=== PATIENT | male | born 1960 | race American Indian/Alaskan Native ===

== ENCOUNTER 2016-09-15 20:26 | Inpatient (IN) | payer MEDICAID ==
[2016-09-15 21:19] LABS: Hemoglobin 8.5 gm/dl (11.8-15.2); Mean Corpuscular HGB Conc 33 % (32-34); Mean Corpuscular Volume 79 fl (84-94); Platelet Count 428 K/mm3 (140-440); Red Blood Count 3.31 M/mm3 (3.65-5.03)
[2016-09-15 21:29] LABS: Mean Corpuscular Hemoglobin 26 pg (28-32); Red Cell Distribution Width 20.4 % (13.2-15.2); White Blood Count 25.6 K/mm3 (4.5-11.0)
[2016-09-15 21:37] LABS: Alanine Aminotransferase 19 units/L (7-56); Albumin 2.7 g/dL (3.9-5); Albumin/Globulin Ratio 0.5 %; Alkaline Phosphatase 450 units/L (35-129); Anion Gap 22 mmol/L; Bilirubin,Total 2.9 mg/dL (0.1-1.2); Blood Urea Nitrogen 9 mg/dL (9-20); Calcium 8.8 mg/dL (8.4-10.2); Carbon Dioxide 24 mmol/L (22-30); Chloride 91.2 mmol/L (98-107); Glucose 83 mg/dL (75-100); Lipase 39 units/L (13-60); Potassium 3.4 mmol/L (3.6-5.0); Sodium 134 mmol/L (137-145); Total Protein 8.7 g/dL (6.3-8.2)
[2016-09-15 22:35] LABS: Basophils % (Manual) 0 % (0.0-1.8); Blastocytes % (Manual) 0 %; Eosinophils % (Manual) 0 % (0.0-4.3); Total Cells Counted Percent 6.5
[2016-09-15 22:36] LABS: Anisocytosis 1+; Diff Status Complete; Hypochromasia 1+; Platelet Estimate Consistent w Auto; Target Cells 1+
[2016-09-16 08:21] LABS: Bilirubin,Urine SM (Negative); Blood,Urine NEG (Negative); Ketones,Urine TR mg/dL (Negative); Leukocyte Esterase,Urine NEG (Negative); Mucus,Urine FEW /HPF; Nitrite,Urine NEG (Negative)
[2016-09-16] MEDS ORDERED: NACL 0.9% 1000 ML 1,000 ML ONE (08:59)
[2016-09-16] MEDS ORDERED: MORPHINE IV ONE (09:15)
[2016-09-16] MEDS ORDERED: ZOSYN/NS 4.5GM/100ML 4.5 GM/100 ML VIAL IV ONE (09:15)
[2016-09-16] MEDS ORDERED: ZOFRAN IV ONE (09:15)
[2016-09-16 10:01] LABS: INR 1.12 (0.87-1.13)
[2016-09-16 10:02] LABS: Partial Thromboplastin Time 51.3 Sec. (24.2-36.6)
[2016-09-16] MEDS ORDERED: NACL ONE (10:18)
[2016-09-16] MEDS ORDERED: NACL 0.9% 1000 ML IV STA (11:23)
--- NOTE | 2016-09-16 11:29 | Cat Scan Report ---
CT ABDOMEN PELVIS WITH CONTRAST History: Abdominal pain Technique: Helical CT following IV contrast. Sagittal and coronal reformatted images. Findings: Compared to 07/20/16. There is now complete thrombosis of the main portal vein as well as most of the right and left portal venous systems. Thrombus also extended into the proximal half of the splenic vein and proximal superior mesenteric vein. Periportal edema is noted near the liver hilum. Mild heterogeneous enhancement throughout the liver parenchyma which is likely secondary to vascular abnormality. There is a new rounded area of decreased enhancement in the central portions of the liver measuring 2.4 cm. This appears to be new since the previous exam. The etiology of this is unclear. This could represent a biloma or possibly an early hepatic abscess. Please correlate with the patient's clinical presentation. There appear to be scattered reactive lymph nodes in the sonali hepatis and gastrohepatic ligament. The spleen is at the upper limits of normal size measuring 12.6 cm. No varicosities or ascites is appreciated. The biliary system, pancreas and adrenal glands are unremarkable. A 1 cm simple cyst is noted in the mid left kidney. Otherwise, the kidneys, collecting systems and bladder are unremarkable. Normal prostate gland. The bowel loops are within normal limits given no oral contrast was administered. Normal appendix. There appears to be mild thickening of the gastric mucosa which could represent a gastritis. Heart size is normal. The visualized lung bases are clear. No suspicious bony lesion or fracture. Moderate to severe degenerative disc disease is noted at L4-5 and L5-S1. Impression: Increased thrombosis of the portal venous system as outlined above since 07/20/16. New 2.4 cm hypodensity near the liver hilum of uncertain etiology. Is there clinical concern for liver abscess? Slightly thickened gastric mucosa, gastritis?
[2016-09-16] MEDS ORDERED: DILAUDID IV ONE (11:47)
--- NOTE | 2016-09-16 12:46 | Emergency Department Report ---
HPI - General Chief Complaint: Abdominal Pain Time Seen by Provider: 09/16/16 09:06 - HPI HPI: Chief complaint: Abdominal pain nausea and vomiting HPI: Patient is a 56-year-old male with a history of portal vein thrombosis who is discharged from the hospital 07/24/2016 on Lovenox and did not follow-up with GI as he was instructed. Patient drinks on a regular basis and was noted on previous CT scan to have possible liver lesion and possible cirrhosis. Patient had a negative MRCP while he was here. Patient states he ran out of medication after a month and never followed up or had it refilled. Patient states last Friday began having right upper quadrant constant sharp abdominal pain. Mode of arrival: private car Source: Patient old chart Began: One week ago Duration: One week Context: See above Quality: Sharp Severity: 10 out of 10 Improved with: Nothing Worsened with: Palpation Associated signs and symptoms: Nausea vomiting on , decreased appetite and decreased bowel movements. ED Past Medical Hx - Past Medical History Previous Medical History?: Yes Hx Arthritis: Yes Additional medical history: Irregular heartbeat - Surgical History Past Surgical History?: No - Social History Smoking Status: Never Smoker Substance Use Type: None - Medications Home Medications: Home Medications Medication Instructions Recorded Confirmed Last Taken Type Enoxaparin [Lovenox] 80 mg SUB-Q Q12HR #30 syringe 07/22/16 Unknown Rx Warfarin [Coumadin] 5 mg PO QDAY #8 tablet 07/22/16 Unknown Rx oxyCODONE /ACETAMINOPHEN [Percocet 1 tab PO Q6H PRN #30 tablet 07/22/16 Unknown Rx 5/325 mg] ED Review of Systems ROS: Stated complaint: STOMACH PAIN Other details as noted in HPI ROS Constitutional: ? fever ENT: No uri symptoms Cardiovascular: No chest pain Respiratory: No sob or cough GI: No diarrhea : No dysuria frequency or urgency, Skin: No rash Neuro: No focal weakness or numbness Psych: No depression Suleiman/lymph: No edema Physical Exam - Physical Exam Vital Signs: Vital Signs 09/15/16 09/16/16 09/16/16 20:36 08:06 09:00 Temperature 99.8 F H Pulse Rate 97 H Respiratory 20 Rate Blood Pressure 129/80 143/82 130/79 Blood Pressure 129/80 [Right] O2 Sat by Pulse 99 Oximetry 0209/16/16 09/16/16 09:40 10:10 11:56 Temperature Pulse Rate Respiratory 20 20 20 Rate Blood Pressure Blood Pressure [Right] O2 Sat by Pulse Oximetry Physical Exam: GENERAL: The patient is well-developed well-nourished . HEENT: Normocephalic. Atraumatic. Extraocular motions are intact. Patient has moist mucous membranes. NECK: Supple. No meningitic signs are noted. There is no adenopathy noted. CHEST/LUNGS: Clear to auscultation. There is no respiratory distress noted. HEART/CARDIOVASCULAR: Regular. There is no tachycardia. There is no gallop rub or murmur. ABDOMEN: Abdomen is soft, tender epigastric and right upper quadrant. Patient has diminished bowel sounds. There is no abdominal distention. SKIN: There is no rash. There is no edema. There is no diaphoresis. NEURO: The patient is awake, alert, and oriented. The patient is cooperative. The patient has no focal neurologic deficits. The patient has normal speech. MUSCULOSKELETAL: There is no tenderness or deformity. There is no limitation range of motion. There is no evidence of acute injury. ED Course Vital Signs 09/15/16 09/16/16 09/16/16 20:36 08:06 09:00 Temperature 99.8 F H Pulse Rate 97 H Respiratory 20 Rate Blood Pressure 129/80 143/82 130/79 Blood Pressure 129/80 [Right] O2 Sat by Pulse 99 Oximetry 09/16/16 09/16/16 09/16/16 09:40 10:10 11:56 Temperature Pulse Rate Respiratory 20 20 20 Rate Blood Pressure Blood Pressure [Right] O2 Sat by Pulse Oximetry - Reevaluation(s) Reevaluation #1: 09/16/16 Patient was cultured and empirically started on Zosyn for his white count of 25, 000. ED Medical Decision Making - Lab Data Result diagrams: 09/15/16 21:04 09/15/16 21:04 Laboratory Tests 09/15/16 09/16/16 21:04 08:02 Total Bilirubin 2.9 H Alkaline Phosphatase 450 H Total Protein 8.7 H Albumin 2.7 L Lipase 39 Urine Ictotest Positive Urine Urobilinogen 4.0 Ur Leukocyte Esterase Neg Urine WBC (Auto) 11.0 H Urine RBC (Auto) 4.0 U Epithel Cells (Auto) < 1.0 - Radiology Data Radiology results: report reviewed (CT scan showed continuing portal vein thrombosis with new gastric wall thickening and several hypodensities to the liver concerning for abscesses.) - Medical Decision Making Patient will be admitted to the hospitalist service. Critical care attestation.: If time is entered above; I have spent that time in minutes in the direct care of this critically ill patient, excluding procedure time. ED Disposition Clinical Impression: Portal vein thrombosis Leukocytosis Qualifiers: Leukocytosis type: unspecified Qualified Code(s): D72.829 - Elevated white blood cell count, unspecified Abdominal pain Qualifiers: Abdominal location: generalized Qualified Code(s): R10.84 - Generalized abdominal pain Disposition: OP ADMITTED IP TO THIS HOSP Is pt being admited?: Yes Does the pt Need Aspirin: No Condition: Fair Referrals: PRIMARY CARE, [Primary Care Provider] - 3-5 Days Time of Disposition: 14:21
--- NOTE | 2016-09-16 12:48 | History and Physical Report ---
History of Present Illness Date of examination: 09/16/16 Date of admission: 09/16/16 Chief complaint: Abdominal pain History of present illness: Patient is a 56-year-old male with a history of portal vein thrombosis who is discharged from the hospital 07/24/2016 on Lovenox and did not follow-up with GI as he was instructed presented with abdominal pain along with nausea. Patient drinks on a regular basis and was noted on previous CT scan to have possible liver lesion and possible cirrhosis. Patient had a negative MRCP while he was here. Patient states he ran out of medication after a month and never followed up or had it refilled. Patient states last Friday he began to have right upper quadrant constant sharp abdominal pain without specific aggrevating or relieving factor. he had repeat CT scan of abdomen in the ER today which showed increased area of portal vein thrombosis with a possible hepatic sedation and possible gastritis. Patient has been getting admitted for further evaluation and management. He states that his last alcohol ingestion was 5 days ago. Past History Past Medical History: denies: acute [place], CAD, cancer, diabetes, DVT, heart failure, hepatitis, HIV/AIDS Past Surgical History: No surgical history Social history: + smoking, +alcohol abuse Family history: cancer Review of System: Constitutional: no fever, no chills, no weight loss Ears, eyes, nose, mouth and throat: no nasal congestion, no nasal discharge, no sinus pressure, no vision change, no red eye. Neck: No neck pain or rigidity. Cardiovascular: No chest pain, no orthopnea, no palpitations, no leg swelling Respiratory: No shortness of breath, no cough, no congestion, no wheezing Gastrointestinal: + abdominal pain, + nausea, no vomiting Genitourinary : no dysuria, no hematuria Musculoskeletal: no joint swelling or muscle ache Integumentary: no rash, no pruritis Neurological: no parathesias, no numbness, no tingling Endocrine: no cold or heat intolerance, no polyuria or polydipsia Hematologic/Lymphatic: no easy bruising, no easy bleeding, no gland swelling Allergic/Immunologic: no urticaria, no angioedema. Medications and Allergies Allergies Allergy/AdvReac Type Severity Reaction Status Date / Time No Known Allergies Allergy Verified 07/20/16 06:07 Home Medications Medication Instructions Recorded Confirmed Last Taken Type No Known Home Medications [No 09/16/16 09/16/16 Unknown History Reported Home Medications] Exam - Physical Exam Narrative exam: GENERAL: This is well-developed well-nourished lying on bed appeared to be in no discomfort. HEENT: Normocephalic. Atraumatic. Extraocular motions are intact. No conjunctival congestion or icterus. Patient has moist mucous membranes. External auditory canal and nares patent bilaterally. NECK: Supple. Trachea midline. No JVD, thyromagaly or lymphadenopathy. CHEST/LUNGS: Clear to auscultated bilaterally. There is no respiratory distress noted, breathing nonlabored. No wheezes crackles or rhonchi. HEART/CARDIOVASCULAR: Regular in rate and rhythm. PMI at the apex. There is no gallop rub or murmur. ABDOMEN: Abdomen is soft, nontender. Patient has normal bowel sounds. There is no abdominal distention. No organomagaly or rigidity. SKIN: There is no rash, no erythrema. There is no diaphoresis. Warm and dry. NEUROLOGY: The patient is awake, alert, and oriented. The patient is cooperative. The patient has normal speech. No focal motor deficit. MUSCULOSKELETAL: No joint effusion or tenderness. Muscle strength equal bilaterally. No muscle wasting. EXTRIMITY: No edema, cyanosis or clubbing. PSYCH: No depression or anxiety noted. Cooperative. - Constitutional Vitals: Temp Pulse Resp BP Pulse Ox 99.8 F H 99 H 20 130/79 99 09/15/16 20:36 09/15/16 20:36 09/16/16 11:56 09/16/16 09:00 09/15/16 20:36 Results - Labs CBC & Chem 7: 09/15/16 21:04 09/15/16 21:04 Labs: Laboratory Last Values WBC 25.6 K/mm3 (4.5-11.0) H 09/15/16 21:04 RBC 3.31 M/mm3 (3.65-5.03) L 09/15/16 21:04 Hgb 8.5 gm/dl (11.8-15.2) L 09/15/16 21:04 Hct 26.0 % (35.5-45.6) L 09/15/16 21:04 MCV 79 fl (84-94) L 09/15/16 21:04 MCH 26 pg (28-32) L 09/15/16 21:04 MCHC 33 % (32-34) 09/15/16 21:04 RDW 20.4 % (13.2-15.2) H 09/15/16 21:04 Plt Count 428 K/mm3 (140-440) 09/15/16 21:04 Add Manual Diff Complete 09/15/16 21:04 Total Counted 200 09/15/16 21:04 Seg Neuts % (Manual) 80.0 % (40.0-70.0) H 09/15/16 21:04 Band Neutrophils % 1.5 % 09/15/16 21:04 Lymphocytes % (Manual) 12.0 % (13.4-35.0) L 09/15/16 21:04 Reactive Lymphs % (Man) 0 % 09/15/16 21:04 Monocytes % (Manual) 6.5 % (0.0-7.3) 09/15/16 21:04 Eosinophils % (Manual) 0 % (0.0-4.3) 09/15/16 21:04 Basophils % (Manual) 0 % (0.0-1.8) 09/15/16 21:04 Metamyelocytes % 0 % 09/15/16 21:04 Myelocytes % 0 % 09/15/16 21:04 Promyelocytes % 0 % 09/15/16 21:04 Blast Cells % 0 % 09/15/16 21:04 Nucleated RBC % Not Reportable 09/15/16 21:04 Seg Neutrophils # Man 20.5 K/mm3 (1.8-7.7) H 09/15/16 21:04 Band Neutrophils # 0.4 K/mm3 09/15/16 21:04 Lymphocytes # (Manual) 3.1 K/mm3 (1.2-5.4) 09/15/16 21:04 Abs React Lymphs (Man) 0.0 K/mm3 09/15/16 21:04 Monocytes # (Manual) 1.7 K/mm3 (0.0-0.8) H 09/15/16 21:04 Eosinophils # (Manual) 0.0 K/mm3 (0.0-0.4) 09/15/16 21:04 Basophils # (Manual) 0.0 K/mm3 (0.0-0.1) 09/15/16 21:04 Metamyelocytes # 0.0 K/mm3 09/15/16 21:04 Myelocytes # 0.0 K/mm3 09/15/16 21:04 Promyelocytes # 0.0 K/mm3 09/15/16 21:04 Blast Cells # 0.0 K/mm3 09/15/16 21:04 WBC Morphology Not Reportable 09/15/16 21:04 Hypersegmented Neuts Not Reportable 09/15/16 21:04 Hyposegmented Neuts Not Reportable 09/15/16 21:04 Hypogranular Neuts Not Reportable 09/15/16 21:04 Smudge Cells Not Reportable 09/15/16 21:04 Toxic Granulation Not Reportable 09/15/16 21:04 Toxic Vacuolation Not Reportable 09/15/16 21:04 Dohle Bodies Not Reportable 09/15/16 21:04 Pelger-Huet Anomaly Not Reportable 09/15/16 21:04 Ming Rods Not Reportable 09/15/16 21:04 Platelet Estimate Consistent w auto 09/15/16 21:04 Clumped Platelets Not Reportable 09/15/16 21:04 Plt Clumps, EDTA Not Reportable 09/15/16 21:04 Large Platelets Not Reportable 09/15/16 21:04 Giant Platelets Not Reportable 09/15/16 21:04 Platelet Satelliting Not Reportable 09/15/16 21:04 Plt Morphology Comment Not Reportable 09/15/16 21:04 RBC Morphology Not Reportable 09/15/16 21:04 Dimorphic RBCs Not Reportable 09/15/16 21:04 Polychromasia Not Reportable 09/15/16 21:04 Hypochromasia 1+ 09/15/16 21:04 Poikilocytosis Not Reportable 09/15/16 21:04 Anisocytosis 1+ 09/15/16 21:04 Microcytosis Not Reportable 09/15/16 21:04 Macrocytosis Not Reportable 09/15/16 21:04 Spherocytes Not Reportable 09/15/16 21:04 Pappenheimer Bodies Not Reportable 09/15/16 21:04 Sickle Cells Not Reportable 09/15/16 21:04 Target Cells 1+ 09/15/16 21:04 Tear Drop Cells Not Reportable 09/15/16 21:04 Ovalocytes Not Reportable 09/15/16 21:04 Helmet Cells Not Reportable 09/15/16 21:04 [place] Bodies Not Reportable 09/15/16 21:04 [place] Rings Not Reportable 09/15/16 21:04 Amanda Cells Not Reportable 09/15/16 21:04 Bite Cells Not Reportable 09/15/16 21:04 Crenated Cell Not Reportable 09/15/16 21:04 Elliptocytes Not Reportable 09/15/16 21:04 Acanthocytes (Spur) Not Reportable 09/15/16 21:04 Rouleaux Not Reportable 09/15/16 21:04 Hemoglobin C Crystals Not Reportable 09/15/16 21:04 Schistocytes Not Reportable 09/15/16 21:04 Malaria parasites Not Reportable 09/15/16 21:04 Deshawn Bodies Not Reportable 09/15/16 21:04 Hem Pathologist Commnt No 09/15/16 21:04 PT 14.3 Sec. (12.2-14.9) 09/16/16 09:24 INR 1.12 (0.87-1.13) 09/16/16 09:24 APTT 51.3 Sec. (24.2-36.6) H 09/16/16 09:24 Sodium 134 mmol/L (137-145) L 09/15/16 21:04 Potassium 3.4 mmol/L (3.6-5.0) L 09/15/16 21:04 Chloride 91.2 mmol/L (98-107) L 09/15/16 21:04 Carbon Dioxide 24 mmol/L (22-30) 09/15/16 21:04 Anion Gap 22 mmol/L 09/15/16 21:04 BUN 9 mg/dL (9-20) 09/15/16 21:04 Creatinine 0.6 mg/dL (0.8-1.5) L 09/15/16 21:04 Estimated GFR > 60 ml/min 09/15/16 21:04 BUN/Creatinine Ratio 15.00 % 09/15/16 21:04 Glucose 83 mg/dL (75-100) 09/15/16 21:04 Calcium 8.8 mg/dL (8.4-10.2) 09/15/16 21:04 Total Bilirubin 2.9 mg/dL (0.1-1.2) H 09/15/16 21:04 AST 21 units/L (5-40) 09/15/16 21:04 ALT 19 units/L (7-56) 09/15/16 21:04 Alkaline Phosphatase 450 units/L (35-129) H 09/15/16 21:04 Total Protein 8.7 g/dL (6.3-8.2) H 09/15/16 21:04 Albumin 2.7 g/dL (3.9-5) L 09/15/16 21:04 Albumin/Globulin Ratio 0.5 % 09/15/16 21:04 Lipase 39 units/L (13-60) 09/15/16 21:04 Urine Color Qi (Yellow) 09/16/16 08:02 Urine Turbidity Clear (Clear) 09/16/16 08:02 Urine pH 6.0 (5.0-7.0) 09/16/16 08:02 Ur Specific Ira 1.021 (1.003-1.030) 09/16/16 08:02 Urine Protein 100 mg/dl mg/dL (Negative) 09/16/16 08:02 Urine Glucose (UA) Neg mg/dL (Negative) 09/16/16 08:02 Urine Ketones Tr mg/dL (Negative) 09/16/16 08:02 Urine Blood Neg (Negative) 09/16/16 08:02 Urine Nitrite Neg (Negative) 09/16/16 08:02 Urine Bilirubin Sm (Negative) 09/16/16 08:02 Urine Ictotest Positive (Negative) 09/16/16 08:02 Urine Urobilinogen 4.0 mg/dL (<2.0) 09/16/16 08:02 Ur Leukocyte Esterase Neg (Negative) 09/16/16 08:02 Urine WBC (Auto) 11.0 /HPF (0.0-6.0) H 09/16/16 08:02 Urine RBC (Auto) 4.0 /HPF (0.0-6.0) 09/16/16 08:02 U Epithel Cells (Auto) < 1.0 /HPF (0-13.0) 09/16/16 08:02 Urine Mucus Few /HPF 09/16/16 08:02 - Imaging and Cardiology CT scan - abdomen: report reviewed CT scan - pelvis: report reviewed Assessment and Plan Assessment and plan: Portal vein thrombosis Medication noncompliance Alcohol abuse Abdominal pain likely due to portal vein thrombosis and gastritis Leukocytosis, rule out sepsis, likely chronically elevated Plan: Patient had extensive workup for possible malignancy during his last admission His CT chest, MRCP, CT abdomen and pelvis during his previous admission did not show any sign for malignancy GI recommended outpatient follow-up for EGD and colonoscopy which patient did not We'll place him on Lovenox therapeutic dose every 12 hours We'll consult GI to see if they will possibly do EGD and colonoscopy this time Counseled for medication compliance If the GI clears him, patient could be started on Coumadin Obtain blood culture, UA, place on empiric antibiotic for now for elevated white count Advance Directives: Yes VTE prophylaxis?: Chemical Plan of care discussed with patient/family: Yes
[2016-09-16] MEDS ORDERED: TYLENOL PO PRN (12:50)
[2016-09-16] MEDS ORDERED: DULCOLAX PR PRN (12:50)
[2016-09-16] MEDS ORDERED: APRESOLINE IV PRN (12:50)
--- NOTE | 2016-09-16 13:01 | Admit Criteria Form ---
Admission Criteria Documentation: ABDOMINAL PAIN Clinical Indications for Admission to Inpatient Care (Place 'X' for any and all applicable criteria): Admission is indicated for ANY ONE of the following(1)(2)(3)(4)(5): [X]I. Inpatient admission required rather than observation care (Also use Abdominal Pain: Observation Care, as appropriate) because of ANY ONE of the following: [ ]a) Severe pain requiring acute inpatient management [X]b) Identification of etiology/finding that requires inpatient care (eg, aortic dissection, free air) [ ]c) Absent bowel sounds with complete ileus(6) [ ]d) Suspected toxic megacolon [ ]e) Severe electrolyte abnormalities requiring inpatient care [ ]f) High fever or infection requiring inpatient admission as indicated by ANY ONE of following(7)(8): [ ] i) Appropriate outpatient or observational care antimicrobial treatment unavailable, not effective, or not feasible [ ] ii) Documented bacteremia [ ] iii) Temperature > 104.9 degrees F (oral) [ ] iv) T >103.1 F (oral) or < 96.8 F(rectal) that does not respond to all emergency treatment measures [ ]g) Signs of intestinal obstruction [B] [ ]h) Hemodynamic instability [ ]i) IV fluid to replace significant ongoing losses (greater than 3 L/m2 per day) (12)(13) [ ]j) Percutaneous or open drainage (eg, abscess, biliary tract ) procedures [ ]k) Parenteral nutrition regimen that must be implemented on inpatient basis [ ]l) Other condition,treatment or monitoring requiring inpatient admission. [ ]II. Peritoneal signs present [ ]III. Surgery needed that cannot be performed on an ambulatory basis. [ ]IV. Evaluation requires patient to not eat or drink for extended period ( eg, more than 24 hours). [ ]V. Contraindications and/or Inappropriate clinical situations for Observational Care in patients with abdominal pain, when ANY ONE of the following is required: [ ]a) Thorough evaluation is required to prevent catastrophic events due to delays in diagnosing (e.g.Mesenteric ischemia) 1,3 [ ]b) Patient with severe pathology or with chronic symptoms unlikely to improve in the ED stay (3) [ ]. General contraindications and/or Inappropriate clinical situations for Observational Care in patients with abdominal pain, when ANY ONE of the following is required: [ ]a) Prediction of prolongation of LOS based on ANY ONE of the following may be considered as a contraindication for observational care 2, 3, 4, 5, 6, 7, 8, 9, 10, 11 [ ]i) Age > 65 yrs. [ ]ii) Patient arriving by ambulance [ ]iii) Patient with high acuity [ ]iv) Patient requiring vital sign monitoring [ ]v) Patient on IV medication [ ]b) Systolic blood pressures 180mmHg 3,12 [ ]c) Patient with altered mental status including delirium and other alteration of consciousness, (3) [ ]d) Patient whose discharge disposition will be to a [facility] home or rehabilitation home should not be managed in Emergency Department Observation Unit. CMS rule requires 3 days hospital stay before such placement.3,13 [ ]e) Patient with failure to thrive due to broad array of etiologies 3,16,17 [ ]f) Inability to ambulate 3,14 Extended stay beyond goal length of stay may be needed for(2)(3): [ ]a) Persistent abdominal pain with suspected intra-abdominal process [ ]b) Diagnosed condition requiring continued stay (e.g., pancreatitis, complicated diverticulitis) [ ]c) Surgery (e.g., colectomy) The original [facility] content created by [employer] has been revised. The portions of the content which have been revised are identified through the use of italic text or in bold, and [facility] has neither reviewed nor approved the modified material.All other unmodified content is copyright [facility]. Please see references footnoted in the original [facility] edition 2016 Admission Criteria Met: Yes
[2016-09-16] MEDS: NORCO 5/325 PO PRN ×2 (13:24→22:29)
[2016-09-16] MEDS: PERCOCET 5/325 PO PRN (17:48)
[2016-09-16] MEDS: NACL 0.45% 1000 ML 1,000 ML IV SCH (17:48)
[2016-09-16] MEDS: LOVENOX SUB-Q SCH (22:29)
[2016-09-16] MEDS: COLACE PO SCH (22:29)
[2016-09-16] MEDS: PEPCID PO SCH (22:30)
[2016-09-17] MEDS: NACL 0.45% 1000 ML 1,000 ML IV SCH ×3 (01:29→20:37)
[2016-09-17] MEDS: PERCOCET 5/325 PO PRN ×2 (05:13→20:37)
[2016-09-17] MEDS: PEPCID PO SCH ×2 (09:34→22:10)
[2016-09-17] MEDS: LOVENOX SUB-Q SCH ×2 (09:35→22:10)
[2016-09-17] MEDS: NORCO 5/325 PO PRN ×2 (09:35→17:09)
[2016-09-17] MEDS: COLACE PO SCH ×2 (09:37→22:10)
[2016-09-17] MEDS ORDERED: LEVAQUIN PO SCH (10:00)
[2016-09-17] MEDS ORDERED: ATIVAN IV PRN (14:10)
--- NOTE | 2016-09-17 14:20 | Progress Note ---
Assessment and Plan Assessment and plan: Portal vein thrombosis Medication noncompliance Alcohol abuse Abdominal pain likely due to portal vein thrombosis and gastritis Leukocytosis, rule out sepsis, likely chronically elevated Hypokalemia, replace Plan: Patient had extensive workup for possible malignancy during his last admission His CT chest, MRCP, CT abdomen and pelvis during his previous admission did not show any sign for malignancy GI recommended outpatient follow-up for EGD and colonoscopy which patient did not We'll continue him on Lovenox therapeutic dose every 12 hours Follow-up GI recommendation to see if they will possibly do EGD and colonoscopy this time Place on when necessary Ativan for possible alcohol withdrawal If the GI clears him, patient could be started on Coumadin Follow-up blood culture, continue on empiric antibiotic for now for elevated white count CBC and BMP tomorrow Replace electrolytes as needed History Interval history: Patient seen and examined. Medical records and medication list reviewed. No acute event overnight noted by the RN. Patient denies any chest pain or difficulty breathing. Patient is tolerating diet. Abdominal pain much improved and nausea under control Discussed plan of care at bedside with patient. Hospitalist Physical - Physical exam Narrative exam: GENERAL: This is well-developed well-nourished -[place]oth[place] male lying on bed appeared to be in no discomfort. HEENT: Normocephalic. Atraumatic. Extraocular motions are intact. No conjunctival congestion or icterus. Patient has moist mucous membranes. External auditory canal and nares patent bilaterally. NECK: Supple. Trachea midline. No JVD, thyromagaly or lymphadenopathy. CHEST/LUNGS: Clear to auscultated bilaterally. There is no respiratory distress noted, breathing nonlabored. No wheezes crackles or rhonchi. HEART/CARDIOVASCULAR: Regular in rate and rhythm. PMI at the apex. There is no gallop rub or murmur. ABDOMEN: Abdomen is soft, nontender. Patient has normal bowel sounds. There is no abdominal distention. No organomagaly or rigidity. SKIN: There is no rash, no erythrema. There is no diaphoresis. Warm and dry. NEUROLOGY: The patient is awake, alert, and oriented. The patient is cooperative. The patient has normal speech. No focal motor deficit. MUSCULOSKELETAL: No joint effusion or tenderness. Muscle strength equal bilaterally. No muscle wasting. EXTRIMITY: No edema, cyanosis or clubbing. PSYCH: No depression or anxiety noted. Cooperative. - Constitutional Vitals: Temp Pulse Resp BP Pulse Ox 98 F 82 16 129/79 98 09/17/16 07:45 09/17/16 07:45 09/17/16 07:45 09/17/16 07:45 09/17/16 07:45 Results - Labs CBC & Chem 7: 09/15/16 21:04 09/15/16 21:04 Labs: Laboratory Last Values WBC 25.6 K/mm3 (4.5-11.0) H 09/15/16 21:04 RBC 3.31 M/mm3 (3.65-5.03) L 09/15/16 21:04 Hgb 8.5 gm/dl (11.8-15.2) L 09/15/16 21:04 Hct 26.0 % (35.5-45.6) L 09/15/16 21:04 MCV 79 fl (84-94) L 09/15/16 21:04 MCH 26 pg (28-32) L 09/15/16 21:04 MCHC 33 % (32-34) 09/15/16 21:04 RDW 20.4 % (13.2-15.2) H 09/15/16 21:04 Plt Count 428 K/mm3 (140-440) 09/15/16 21:04 Add Manual Diff Complete 09/15/16 21:04 Total Counted 200 09/15/16 21:04 Seg Neuts % (Manual) 80.0 % (40.0-70.0) H 09/15/16 21:04 Band Neutrophils % 1.5 % 09/15/16 21:04 Lymphocytes % (Manual) 12.0 % (13.4-35.0) L 09/15/16 21:04 Reactive Lymphs % (Man) 0 % 09/15/16 21:04 Monocytes % (Manual) 6.5 % (0.0-7.3) 09/15/16 21:04 Eosinophils % (Manual) 0 % (0.0-4.3) 09/15/16 21:04 Basophils % (Manual) 0 % (0.0-1.8) 09/15/16 21:04 Metamyelocytes % 0 % 09/15/16 21:04 Myelocytes % 0 % 09/15/16 21:04 Promyelocytes % 0 % 09/15/16 21:04 Blast Cells % 0 % 09/15/16 21:04 Nucleated RBC % Not Reportable 09/15/16 21:04 Seg Neutrophils # Man 20.5 K/mm3 (1.8-7.7) H 09/15/16 21:04 Band Neutrophils # 0.4 K/mm3 09/15/16 21:04 Lymphocytes # (Manual) 3.1 K/mm3 (1.2-5.4) 09/15/16 21:04 Abs React Lymphs (Man) 0.0 K/mm3 09/15/16 21:04 Monocytes # (Manual) 1.7 K/mm3 (0.0-0.8) H 09/15/16 21:04 Eosinophils # (Manual) 0.0 K/mm3 (0.0-0.4) 09/15/16 21:04 Basophils # (Manual) 0.0 K/mm3 (0.0-0.1) 09/15/16 21:04 Metamyelocytes # 0.0 K/mm3 09/15/16 21:04 Myelocytes # 0.0 K/mm3 09/15/16 21:04 Promyelocytes # 0.0 K/mm3 09/15/16 21:04 Blast Cells # 0.0 K/mm3 09/15/16 21:04 WBC Morphology Not Reportable 09/15/16 21:04 Hypersegmented Neuts Not Reportable 09/15/16 21:04 Hyposegmented Neuts Not Reportable 09/15/16 21:04 Hypogranular Neuts Not Reportable 09/15/16 21:04 Smudge Cells Not Reportable 09/15/16 21:04 Toxic Granulation Not Reportable 09/15/16 21:04 Toxic Vacuolation Not Reportable 09/15/16 21:04 Dohle Bodies Not Reportable 09/15/16 21:04 Pelger-Huet Anomaly Not Reportable 09/15/16 21:04 Ming Rods Not Reportable 09/15/16 21:04 Platelet Estimate Consistent w auto 09/15/16 21:04 Clumped Platelets Not Reportable 09/15/16 21:04 Plt Clumps, EDTA Not Reportable 09/15/16 21:04 Large Platelets Not Reportable 09/15/16 21:04 Giant Platelets Not Reportable 09/15/16 21:04 Platelet Satelliting Not Reportable 09/15/16 21:04 Plt Morphology Comment Not Reportable 09/15/16 21:04 RBC Morphology Not Reportable 09/15/16 21:04 Dimorphic RBCs Not Reportable 09/15/16 21:04 Polychromasia Not Reportable 09/15/16 21:04 Hypochromasia 1+ 09/15/16 21:04 Poikilocytosis Not Reportable 09/15/16 21:04 Anisocytosis 1+ 09/15/16 21:04 Microcytosis Not Reportable 09/15/16 21:04 Macrocytosis Not Reportable 09/15/16 21:04 Spherocytes Not Reportable 09/15/16 21:04 Pappenheimer Bodies Not Reportable 09/15/16 21:04 Sickle Cells Not Reportable 09/15/16 21:04 Target Cells 1+ 09/15/16 21:04 Tear Drop Cells Not Reportable 09/15/16 21:04 Ovalocytes Not Reportable 09/15/16 21:04 Helmet Cells Not Reportable 09/15/16 21:04 [place] Bodies Not Reportable 09/15/16 21:04 [place] Rings Not Reportable 09/15/16 21:04 [place] Cells Not Reportable 09/15/16 21:04 Bite Cells Not Reportable 09/15/16 21:04 Crenated Cell Not Reportable 09/15/16 21:04 Elliptocytes Not Reportable 09/15/16 21:04 Acanthocytes (Spur) Not Reportable 09/15/16 21:04 Rouleaux Not Reportable 09/15/16 21:04 Hemoglobin C Crystals Not Reportable 09/15/16 21:04 Schistocytes Not Reportable 09/15/16 21:04 Malaria parasites Not Reportable 09/15/16 21:04 Deshawn Bodies Not Reportable 09/15/16 21:04 Hem Pathologist Commnt No 09/15/16 21:04 PT 14.3 Sec. (12.2-14.9) 09/16/16 09:24 INR 1.12 (0.87-1.13) 09/16/16 09:24 APTT 51.3 Sec. (24.2-36.6) H 09/16/16 09:24 Sodium 134 mmol/L (137-145) L 09/15/16 21:04 Potassium 3.4 mmol/L (3.6-5.0) L 09/15/16 21:04 Chloride 91.2 mmol/L (98-107) L 09/15/16 21:04 Carbon Dioxide 24 mmol/L (22-30) 09/15/16 21:04 Anion Gap 22 mmol/L 09/15/16 21:04 BUN 9 mg/dL (9-20) 09/15/16 21:04 Creatinine 0.6 mg/dL (0.8-1.5) L 09/15/16 21:04 Estimated GFR > 60 ml/min 09/15/16 21:04 BUN/Creatinine Ratio 15.00 % 09/15/16 21:04 Glucose 83 mg/dL (75-100) 09/15/16 21:04 Calcium 8.8 mg/dL (8.4-10.2) 09/15/16 21:04 Total Bilirubin 2.9 mg/dL (0.1-1.2) H 09/15/16 21:04 AST 21 units/L (5-40) 09/15/16 21:04 ALT 19 units/L (7-56) 09/15/16 21:04 Alkaline Phosphatase 450 units/L (35-129) H 09/15/16 21:04 Total Protein 8.7 g/dL (6.3-8.2) H 09/15/16 21:04 Albumin 2.7 g/dL (3.9-5) L 09/15/16 21:04 Albumin/Globulin Ratio 0.5 % 09/15/16 21:04 Lipase 39 units/L (13-60) 09/15/16 21:04 Urine Color Qi (Yellow) 09/16/16 08:02 Urine Turbidity Clear (Clear) 09/16/16 08:02 Urine pH 6.0 (5.0-7.0) 09/16/16 08:02 Ur Specific [place] 1.021 (1.003-1.030) 09/16/16 08:02 Urine Protein 100 mg/dl mg/dL (Negative) 09/16/16 08:02 Urine Glucose (UA) Neg mg/dL (Negative) 09/16/16 08:02 Urine Ketones Tr mg/dL (Negative) 09/16/16 08:02 Urine Blood Neg (Negative) 09/16/16 08:02 Urine Nitrite Neg (Negative) 09/16/16 08:02 Urine Bilirubin Sm (Negative) 09/16/16 08:02 Urine Ictotest Positive (Negative) 09/16/16 08:02 Urine Urobilinogen 4.0 mg/dL (<2.0) 09/16/16 08:02 Ur Leukocyte Esterase Neg (Negative) 09/16/16 08:02 Urine WBC (Auto) 11.0 /HPF (0.0-6.0) H 09/16/16 08:02 Urine RBC (Auto) 4.0 /HPF (0.0-6.0) 09/16/16 08:02 U Epithel Cells (Auto) < 1.0 /HPF (0-13.0) 09/16/16 08:02 Urine Mucus Few /HPF 09/16/16 08:02
--- NOTE | 2016-09-17 14:35 | Gastroenterology Consultation ---
History of Present Illness - Reason for Consult Consult date: 09/17/16 Portal vein thrombosis Requesting physician: EDEN RUEDA - History of Present Illness MR Jones is a 56 y/o male admitted with progressive RUQ pain. He was seen in this hospital in 06/2016 with hx of partial portal vein thrombosis. He was discharged on Lovenox and was to follow up in our office or colonoscopy. The patient reports he ran out of his medications and his pain became worse, therefore he presented to the ED. MRI scan in 07/24/2016 suggestive of portal vein thrombosis, however no mass identified. He reports increased RUQ pain with chills and decreased appetite. Repeat CT scan in the ER showed increased area of portal vein thrombosis with a possible early hepatic abscess. He states that his last alcohol ingestion was 5 days ago. Past History Past Medical History: other (portal vein thrombosis, ETOH use) Past Surgical History: No surgical history Social history: smoking, alcohol abuse Family history: cancer Medications and Allergies Allergies Allergy/AdvReac Type Severity Reaction Status Date / Time No Known Allergies Allergy Verified 07/20/16 06:07 Home Medications Medication Instructions Recorded Confirmed Last Taken Type No Known Home Medications [No 09/16/16 09/16/16 Unknown History Reported Home Medications] Active Meds: Active Medications Acetaminophen (Tylenol) 650 mg PO Q4H PRN PRN Reason: Pain MILD(1-3)/Fever >100.5/[place] Acetaminophen/Hydrocodone Bitart ([place] 5/325) 2 each PO Q6H PRN PRN Reason: Pain, Moderate (4-6) Last Admin: 09/17/16 09:35 Dose: 2 each Bisacodyl (Dulcolax) [address] QDAY PRN PRN Reason: Constipation unrelieved by MOM Docusate Sodium (Colace) 100 mg PO BID [facility] Last Admin: 09/17/16 09:37 Dose: 100 mg Enoxaparin Sodium (Lovenox) 70 mg SUB-Q Q12HR [facility] Last Admin: 09/17/16 09:35 Dose: 70 mg Famotidine (Pepcid) 10 mg PO BID [facility] Last Admin: 09/17/16 09:34 Dose: 10 mg Hydralazine HCl (Apresoline) 5 mg IV Q30MIN PRN PRN Reason: Hypertension Sodium Chloride (Nacl 0.45% 1000 Ml) 1,000 mls @ 125 mls/hr IV DIRECT [facility] Last Admin: 09/17/16 09:36 Dose: 125 mls/hr Levofloxacin (Levaquin) 500 mg PO Q24HR [facility] Last Admin: 09/17/16 09:35 Dose: 500 mg Lorazepam (Ativan) 2 mg IV Q4H PRN PRN Reason: Agitation Oxycodone/Acetaminophen (Percocet 5/325) 1 tab PO Q6H PRN PRN Reason: Pain, Moderate (4-6) Last Admin: 09/17/16 05:13 Dose: 1 tab Review of Systems - Review of Systems All systems: negative Constitutional: poor appetite Gastrointestinal: nausea, vomiting Exam - Constitutional Vital Signs: Temp Pulse Resp BP Pulse Ox 98 F 82 16 129/79 98 09/17/16 07:45 09/17/16 07:45 09/17/16 07:45 09/17/16 07:45 09/17/16 07:45 General appearance: no acute distress - EENT Eyes: EOM intact ENT: hearing intact - Neck Neck: supple - Respiratory Respiratory: bilateral: CTA - Cardiovascular Rhythm: regular Heart Sounds: Present: S1 & S2 Extremities: No edema - Gastrointestinal General gastrointestinal: Present: soft, tender, normal bowel sounds (TTP RIght side) - Integumentary Integumentary: Present: warm, dry - Neurologic Neurological: alert and oriented x3 - Psychiatric Psychiatric: appropriate mood/affect, cooperative - Labs CBC & Chem 7: 09/15/16 21:04 09/15/16 21:04 Assessment and Plan 1. Portal Vein Thrombosis -Extending to splenic vein and SMV -Continue Lovenox for now. Will need to review CT to asses if there is an early abscess. May have to consider drainage. Of note, patient with elevated WBC of 25K( thrombus vs infection). Currently on Levaquin. Will need to broaden the coverage with Zosyn. T max 99.8. -Will need to rule out abscess prior to EGD/Colonoscopy. -Further recommendations to follow.
[2016-09-17 16:11] LABS: Hemoglobin 8.7 gm/dl (11.8-15.2); Mean Corpuscular HGB Conc 32 % (32-34); Mean Corpuscular Volume 78 fl (84-94); Platelet Count 469 K/mm3 (140-440); Red Blood Count 3.45 M/mm3 (3.65-5.03)
[2016-09-17 16:12] LABS: Mean Corpuscular Hemoglobin 25 pg (28-32); White Blood Count 26.1 K/mm3 (4.5-11.0)
[2016-09-17 16:36] LABS: Total Iron Binding Capacity 201.6 mcg/dL (250-450)
[2016-09-17] MEDS: ZOSYN/NS 4.5GM/100ML 4.5 GM/100 ML VIAL IV SCH ×2 (17:09→23:43)
[2016-09-18] MEDS: NORCO 5/325 PO PRN (04:03)
[2016-09-18] MEDS: NACL 0.45% 1000 ML 1,000 ML IV SCH (04:50)
[2016-09-18 06:54] LABS: Hemoglobin 7.5 gm/dl (11.8-15.2); Mean Corpuscular HGB Conc 33 % (32-34); Mean Corpuscular Volume 78 fl (84-94); Platelet Count 350 K/mm3 (140-440); Red Blood Count 2.96 M/mm3 (3.65-5.03); White Blood Count 17.8 K/mm3 (4.5-11.0)
[2016-09-18 06:59] LABS: Mean Corpuscular Hemoglobin 25 pg (28-32); Red Cell Distribution Width 20.1 % (13.2-15.2)
[2016-09-18 07:05] LABS: Anion Gap 15 mmol/L; Blood Urea Nitrogen 5 mg/dL (9-20); Calcium 8.1 mg/dL (8.4-10.2); Carbon Dioxide 24 mmol/L (22-30); Glucose 82 mg/dL (75-100); Potassium 3.4 mmol/L (3.6-5.0); Sodium 130 mmol/L (137-145)
[2016-09-18] MEDS: ZOSYN/NS 4.5GM/100ML 4.5 GM/100 ML VIAL IV SCH ×3 (08:29→23:25)
[2016-09-18 08:43] LABS: Basophils % (Manual) 0 % (0.0-1.8); Blastocytes % (Manual) 0 %; Eosinophils % (Manual) 0 % (0.0-4.3)
[2016-09-18 08:44] LABS: Anisocytosis 1+; Diff Status Complete; Hypochromasia 1+; Poikilocytosis 1+; Target Cells 1+
[2016-09-18] MEDS: LOVENOX SUB-Q SCH ×2 (09:23→21:59)
[2016-09-18] MEDS: PERCOCET 5/325 PO PRN (09:23)
[2016-09-18] MEDS: COLACE PO SCH ×2 (09:23→21:58)
[2016-09-18] MEDS: PEPCID PO SCH ×2 (09:23→21:58)
[2016-09-18] MEDS: THORAZINE PO PRN ×2 (09:56→20:15)
[2016-09-18] MEDS: MORPHINE IV PRN ×3 (13:42→22:17)
--- NOTE | 2016-09-18 20:42 | Progress Note ---
Assessment and Plan Assessment and plan: Portal vein thrombosis Acute hepatic abscess Microcytic anemia, possible GI loss Medication noncompliance h/o Alcohol abuse Abdominal pain likely due to portal vein thrombosis and hepatic abscess Leukocytosis, likley due to hepatic abscess Hypokalemia, replaced Plan: Patient had extensive workup for possible malignancy during his last admission His CT chest, MRCP, CT abdomen and pelvis during his previous admission did not show any sign for malignancy Plan for EGD and colonoscopy tomorrow per GI continue on Lovenox therapeutic dose every 12 hours, hold am dose Place on when necessary Ativan for possible alcohol withdrawal continue on zosyn for now hepatic abscess CBC and BMP tomorrow Replace electrolytes as needed History Interval history: Patient seen and examined. Medical records and medication list reviewed. No acute event overnight noted by the RN. Patient is tolerating diet. Abdominal pain much improved and nausea under control Plan for EGD/colonoscopy tomorrow Discussed plan of care at bedside with patient. Hospitalist Physical - Physical exam Narrative exam: GENERAL: This is well-developed well-nourished -[place]inese male lying on bed appeared to be in no discomfort. HEENT: Normocephalic. Atraumatic. Extraocular motions are intact. No conjunctival congestion or icterus. Patient has moist mucous membranes. External auditory canal and nares patent bilaterally. NECK: Supple. Trachea midline. No JVD, thyromagaly or lymphadenopathy. CHEST/LUNGS: Clear to auscultated bilaterally. There is no respiratory distress noted, breathing nonlabored. No wheezes crackles or rhonchi. HEART/CARDIOVASCULAR: Regular in rate and rhythm. PMI at the apex. There is no gallop rub or murmur. ABDOMEN: Abdomen is soft, nontender. Patient has normal bowel sounds. There is no abdominal distention. No organomagaly or rigidity. SKIN: There is no rash, no erythrema. There is no diaphoresis. Warm and dry. NEUROLOGY: The patient is awake, alert, and oriented. The patient is cooperative. The patient has normal speech. No focal motor deficit. MUSCULOSKELETAL: No joint effusion or tenderness. Muscle strength equal bilaterally. No muscle wasting. EXTRIMITY: No edema, cyanosis or clubbing. PSYCH: No depression or anxiety noted. Cooperative. - Constitutional Vitals: Temp Pulse Resp BP Pulse Ox 97.8 F 63 15 103/64 100 09/18/16 15:25 09/18/16 15:25 09/18/16 15:25 09/18/16 15:25 09/18/16 15:25 Results - Labs CBC & Chem 7: 09/18/16 06:11 09/18/16 06:11 Labs: Laboratory Last Values WBC 17.8 K/mm3 (4.5-11.0) H 09/18/16 06:11 RBC 2.96 M/mm3 (3.65-5.03) L 09/18/16 06:11 Hgb 7.5 gm/dl (11.8-15.2) L 09/18/16 06:11 Hct 23.0 % (35.5-45.6) L 09/18/16 06:11 MCV 78 fl (84-94) L 09/18/16 06:11 MCH 25 pg (28-32) L 09/18/16 06:11 MCHC 33 % (32-34) 09/18/16 06:11 RDW 20.1 % (13.2-15.2) H 09/18/16 06:11 Plt Count 350 K/mm3 (140-440) 09/18/16 06:11 Add Manual Diff Complete 09/18/16 06:11 Total Counted 100 09/18/16 06:11 Seg Neuts % (Manual) 78.0 % (40.0-70.0) H 09/18/16 06:11 Band Neutrophils % 12.0 % 09/18/16 06:11 Lymphocytes % (Manual) 5.0 % (13.4-35.0) L 09/18/16 06:11 Reactive Lymphs % (Man) 0 % 09/18/16 06:11 Monocytes % (Manual) 5.0 % (0.0-7.3) 09/18/16 06:11 Eosinophils % (Manual) 0 % (0.0-4.3) 09/18/16 06:11 Basophils % (Manual) 0 % (0.0-1.8) 09/18/16 06:11 Metamyelocytes % 0 % 09/18/16 06:11 Myelocytes % 0 % 09/18/16 06:11 Promyelocytes % 0 % 09/18/16 06:11 Blast Cells % 0 % 09/18/16 06:11 Nucleated RBC % Not Reportable 09/18/16 06:11 Seg Neutrophils # Man 13.9 K/mm3 (1.8-7.7) H 09/18/16 06:11 Band Neutrophils # 2.1 K/mm3 09/18/16 06:11 Lymphocytes # (Manual) 0.9 K/mm3 (1.2-5.4) L 09/18/16 06:11 Abs React Lymphs (Man) 0.0 K/mm3 09/18/16 06:11 Monocytes # (Manual) 0.9 K/mm3 (0.0-0.8) H 09/18/16 06:11 Eosinophils # (Manual) 0.0 K/mm3 (0.0-0.4) 09/18/16 06:11 Basophils # (Manual) 0.0 K/mm3 (0.0-0.1) 09/18/16 06:11 Metamyelocytes # 0.0 K/mm3 09/18/16 06:11 Myelocytes # 0.0 K/mm3 09/18/16 06:11 Promyelocytes # 0.0 K/mm3 09/18/16 06:11 Blast Cells # 0.0 K/mm3 09/18/16 06:11 WBC Morphology Not Reportable 09/18/16 06:11 Hypersegmented Neuts Not Reportable 09/18/16 06:11 Hyposegmented Neuts Not Reportable 09/18/16 06:11 Hypogranular Neuts Not Reportable 09/18/16 06:11 Smudge Cells Not Reportable 09/18/16 06:11 Toxic Granulation Not Reportable 09/18/16 06:11 Toxic Vacuolation Not Reportable 09/18/16 06:11 Dohle Bodies Not Reportable 09/18/16 06:11 Pelger-Huet Anomaly Not Reportable 09/18/16 06:11 Ming Rods Not Reportable 09/18/16 06:11 Platelet Estimate Appears normal 09/18/16 06:11 Clumped Platelets Not Reportable 09/18/16 06:11 Plt Clumps, EDTA Not Reportable 09/18/16 06:11 Large Platelets Not Reportable 09/18/16 06:11 Giant Platelets Not Reportable 09/18/16 06:11 Platelet Satelliting Not Reportable 09/18/16 06:11 Plt Morphology Comment Not Reportable 09/18/16 06:11 RBC Morphology Not Reportable 09/18/16 06:11 Dimorphic RBCs Not Reportable 09/18/16 06:11 Polychromasia Not Reportable 09/18/16 06:11 Hypochromasia 1+ 09/18/16 06:11 Poikilocytosis 1+ 09/18/16 06:11 Anisocytosis 1+ 09/18/16 06:11 Microcytosis Not Reportable 09/18/16 06:11 Macrocytosis Not Reportable 09/18/16 06:11 Spherocytes Not Reportable 09/18/16 06:11 Pappenheimer Bodies Not Reportable 09/18/16 06:11 Sickle Cells Not Reportable 09/18/16 06:11 Target Cells 1+ 09/18/16 06:11 Tear Drop Cells Not Reportable 09/18/16 06:11 Ovalocytes Not Reportable 09/18/16 06:11 Helmet Cells Not Reportable 09/18/16 06:11 [place] Bodies Not Reportable 09/18/16 06:11 [place] Rings Not Reportable 09/18/16 06:11 [place] Cells Not Reportable 09/18/16 06:11 Bite Cells Not Reportable 09/18/16 06:11 Crenated Cell Not Reportable 09/18/16 06:11 Elliptocytes Not Reportable 09/18/16 06:11 Acanthocytes (Spur) Not Reportable 09/18/16 06:11 Rouleaux Not Reportable 09/18/16 06:11 Hemoglobin C Crystals Not Reportable 09/18/16 06:11 Schistocytes Not Reportable 09/18/16 06:11 Malaria parasites Not Reportable 09/18/16 06:11 Deshawn Bodies Not Reportable 09/18/16 06:11 Hem Pathologist Commnt No 09/18/16 06:11 PT 14.3 Sec. (12.2-14.9) 09/16/16 09:24 INR 1.12 (0.87-1.13) 09/16/16 09:24 APTT 51.3 Sec. (24.2-36.6) H 09/16/16 09:24 Sodium 130 mmol/L (137-145) L 09/18/16 06:11 Potassium 3.4 mmol/L (3.6-5.0) L 09/18/16 06:11 Chloride 94.0 mmol/L (98-107) L 09/18/16 06:11 Carbon Dioxide 24 mmol/L (22-30) 09/18/16 06:11 Anion Gap 15 mmol/L 09/18/16 06:11 BUN 5 mg/dL (9-20) L 09/18/16 06:11 Creatinine 0.5 mg/dL (0.8-1.5) L 09/18/16 06:11 Estimated GFR > 60 ml/min 09/18/16 06:11 BUN/Creatinine Ratio 10.00 % 09/18/16 06:11 Glucose 82 mg/dL (75-100) 09/18/16 06:11 Calcium 8.1 mg/dL (8.4-10.2) L 09/18/16 06:11 Iron 34 ug/dL (49-181) L 09/17/16 15:34 TIBC 201.60 mcg/dL (250-450) L 09/17/16 15:34 Transferrin 144 mg/dl (180-329) L 09/17/16 15:34 Ferritin 658.3 ng/mL (13.0-400.0) H 09/17/16 15:34 Total Bilirubin 2.9 mg/dL (0.1-1.2) H 09/15/16 21:04 AST 21 units/L (5-40) 09/15/16 21:04 ALT 19 units/L (7-56) 09/15/16 21:04 Alkaline Phosphatase 450 units/L (35-129) H 09/15/16 21:04 Total Protein 8.7 g/dL (6.3-8.2) H 09/15/16 21:04 Albumin 2.7 g/dL (3.9-5) L 09/15/16 21:04 Albumin/Globulin Ratio 0.5 % 09/15/16 21:04 Lipase 39 units/L (13-60) 09/15/16 21:04 Urine Color Qi (Yellow) 09/16/16 08:02 Urine Turbidity Clear (Clear) 09/16/16 08:02 Urine pH 6.0 (5.0-7.0) 09/16/16 08:02 Ur Specific [place] 1.021 (1.003-1.030) 09/16/16 08:02 Urine Protein 100 mg/dl mg/dL (Negative) 09/16/16 08:02 Urine Glucose (UA) Neg mg/dL (Negative) 09/16/16 08:02 Urine Ketones Tr mg/dL (Negative) 09/16/16 08:02 Urine Blood Neg (Negative) 09/16/16 08:02 Urine Nitrite Neg (Negative) 09/16/16 08:02 Urine Bilirubin Sm (Negative) 09/16/16 08:02 Urine Ictotest Positive (Negative) 09/16/16 08:02 Urine Urobilinogen 4.0 mg/dL (<2.0) 09/16/16 08:02 Ur Leukocyte Esterase Neg (Negative) 09/16/16 08:02 Urine WBC (Auto) 11.0 /HPF (0.0-6.0) H 09/16/16 08:02 Urine RBC (Auto) 4.0 /HPF (0.0-6.0) 09/16/16 08:02 U Epithel Cells (Auto) < 1.0 /HPF (0-13.0) 09/16/16 08:02 Urine Mucus Few /HPF 09/16/16 08:02
[2016-09-19] MEDS: MORPHINE IV PRN ×3 (07:00→20:52)
[2016-09-19] MEDS: ZOSYN/NS 4.5GM/100ML 4.5 GM/100 ML VIAL IV SCH ×3 (07:06→21:44)
[2016-09-19] MEDS ORDERED: WATER FOR IRRIG STERILE IR ONE (11:49)
[2016-09-19] MEDS ORDERED: NACL 0.9% 1000 ML 1,000 ML IV SCH (12:00)
[2016-09-19] MEDS: COLACE PO SCH ×2 (12:24→21:44)
[2016-09-19] MEDS: PEPCID PO SCH ×2 (12:25→21:44)
--- NOTE | 2016-09-19 14:31 | Event Note ---
Date: 09/19/16 Patient request to have EGD/Colonoscopy together. Will prep this PM and plan for EGD/Colonoscopy tomorrow Sara Sanchez, [id number]
[2016-09-19] MEDS ORDERED: GOLYTELY PO ONE (14:33)
--- NOTE | 2016-09-19 14:45 | Progress Note ---
Assessment and Plan Assessment and plan: Portal vein thrombosis Acute hepatic abscess Microcytic anemia, possible GI loss Medication noncompliance h/o Alcohol abuse Abdominal pain likely due to portal vein thrombosis and hepatic abscess Leukocytosis, likley due to hepatic abscess Hypokalemia, replaced Plan: Patient had extensive workup for possible malignancy during his last admission His CT chest, MRCP, CT abdomen and pelvis during his previous admission did not show any sign for malignancy Plan for EGD and colonoscopy tomorrow per GI continue on Lovenox therapeutic dose every 12 hours, Place on when necessary Ativan for possible alcohol withdrawal continue on zosyn for now hepatic abscess CBC and BMP tomorrow Replace electrolytes as needed History Interval history: Patient seen and examined. Medical records and medication list reviewed. No acute event overnight noted by the RN. Patient was scheduled for EGD today but didnot have the prep for colonoscopy he will have both procedure tomorrow Discussed plan of care at bedside with patient. Hospitalist Physical - Physical exam Narrative exam: GENERAL: This is well-developed well-nourished -[place] male lying on bed appeared to be in no discomfort. HEENT: Normocephalic. Patient has moist mucous membranes. External auditory canal and nares patent bilaterally. NECK: Supple. Trachea midline. CHEST/LUNGS: Clear to auscultated bilaterally. There is no respiratory distress noted, breathing nonlabored. HEART/CARDIOVASCULAR: Regular in rate and rhythm. ABDOMEN: Abdomen is soft, nontender. Patient has normal bowel sounds. SKIN: There is no rash, no erythrema. Warm and dry. NEUROLOGY: The patient is awake, alert, and oriented. MUSCULOSKELETAL: No joint effusion or tenderness. EXTRIMITY: No edema, cyanosis or clubbing. PSYCH: Cooperative. - Constitutional Vitals: Temp Pulse Resp BP Pulse Ox 98.7 F 73 13 136/85 100 09/19/16 13:28 09/19/16 13:28 09/19/16 13:28 09/19/16 13:28 09/19/16 13:28 Results - Labs CBC & Chem 7: 09/18/16 06:11 09/18/16 06:11 Labs: Laboratory Last Values WBC 17.8 K/mm3 (4.5-11.0) H 09/18/16 06:11 RBC 2.96 M/mm3 (3.65-5.03) L 09/18/16 06:11 Hgb 7.5 gm/dl (11.8-15.2) L 09/18/16 06:11 Hct 23.0 % (35.5-45.6) L 09/18/16 06:11 MCV 78 fl (84-94) L 09/18/16 06:11 MCH 25 pg (28-32) L 09/18/16 06:11 MCHC 33 % (32-34) 09/18/16 06:11 RDW 20.1 % (13.2-15.2) H 09/18/16 06:11 Plt Count 350 K/mm3 (140-440) 09/18/16 06:11 Add Manual Diff Complete 09/18/16 06:11 Total Counted 100 09/18/16 06:11 Seg Neuts % (Manual) 78.0 % (40.0-70.0) H 09/18/16 06:11 Band Neutrophils % 12.0 % 09/18/16 06:11 Lymphocytes % (Manual) 5.0 % (13.4-35.0) L 09/18/16 06:11 Reactive Lymphs % (Man) 0 % 09/18/16 06:11 Monocytes % (Manual) 5.0 % (0.0-7.3) 09/18/16 06:11 Eosinophils % (Manual) 0 % (0.0-4.3) 09/18/16 06:11 Basophils % (Manual) 0 % (0.0-1.8) 09/18/16 06:11 Metamyelocytes % 0 % 09/18/16 06:11 Myelocytes % 0 % 09/18/16 06:11 Promyelocytes % 0 % 09/18/16 06:11 Blast Cells % 0 % 09/18/16 06:11 Nucleated RBC % Not Reportable 09/18/16 06:11 Seg Neutrophils # Man 13.9 K/mm3 (1.8-7.7) H 09/18/16 06:11 Band Neutrophils # 2.1 K/mm3 09/18/16 06:11 Lymphocytes # (Manual) 0.9 K/mm3 (1.2-5.4) L 09/18/16 06:11 Abs React Lymphs (Man) 0.0 K/mm3 09/18/16 06:11 Monocytes # (Manual) 0.9 K/mm3 (0.0-0.8) H 09/18/16 06:11 Eosinophils # (Manual) 0.0 K/mm3 (0.0-0.4) 09/18/16 06:11 Basophils # (Manual) 0.0 K/mm3 (0.0-0.1) 09/18/16 06:11 Metamyelocytes # 0.0 K/mm3 09/18/16 06:11 Myelocytes # 0.0 K/mm3 09/18/16 06:11 Promyelocytes # 0.0 K/mm3 09/18/16 06:11 Blast Cells # 0.0 K/mm3 09/18/16 06:11 WBC Morphology Not Reportable 09/18/16 06:11 Hypersegmented Neuts Not Reportable 09/18/16 06:11 Hyposegmented Neuts Not Reportable 09/18/16 06:11 Hypogranular Neuts Not Reportable 09/18/16 06:11 Smudge Cells Not Reportable 09/18/16 06:11 Toxic Granulation Not Reportable 09/18/16 06:11 Toxic Vacuolation Not Reportable 09/18/16 06:11 Dohle Bodies Not Reportable 09/18/16 06:11 Pelger-Huet Anomaly Not Reportable 09/18/16 06:11 Ming Rods Not Reportable 09/18/16 06:11 Platelet Estimate Appears normal 09/18/16 06:11 Clumped Platelets Not Reportable 09/18/16 06:11 Plt Clumps, EDTA Not Reportable 09/18/16 06:11 Large Platelets Not Reportable 09/18/16 06:11 Giant Platelets Not Reportable 09/18/16 06:11 Platelet Satelliting Not Reportable 09/18/16 06:11 Plt Morphology Comment Not Reportable 09/18/16 06:11 RBC Morphology Not Reportable 09/18/16 06:11 Dimorphic RBCs Not Reportable 09/18/16 06:11 Polychromasia Not Reportable 09/18/16 06:11 Hypochromasia 1+ 09/18/16 06:11 Poikilocytosis 1+ 09/18/16 06:11 Anisocytosis 1+ 09/18/16 06:11 Microcytosis Not Reportable 09/18/16 06:11 Macrocytosis Not Reportable 09/18/16 06:11 Spherocytes Not Reportable 09/18/16 06:11 Pappenheimer Bodies Not Reportable 09/18/16 06:11 Sickle Cells Not Reportable 09/18/16 06:11 Target Cells 1+ 09/18/16 06:11 Tear Drop Cells Not Reportable 09/18/16 06:11 Ovalocytes Not Reportable 09/18/16 06:11 Helmet Cells Not Reportable 09/18/16 06:11 Amaro[place] Bodies Not Reportable 09/18/16 06:11 [place] Rings Not Reportable 09/18/16 06:11 [place] Cells Not Reportable 09/18/16 06:11 Bite Cells Not Reportable 09/18/16 06:11 Crenated Cell Not Reportable 09/18/16 06:11 Elliptocytes Not Reportable 09/18/16 06:11 Acanthocytes (Spur) Not Reportable 09/18/16 06:11 Rouleaux Not Reportable 09/18/16 06:11 Hemoglobin C Crystals Not Reportable 09/18/16 06:11 Schistocytes Not Reportable 09/18/16 06:11 Malaria parasites Not Reportable 09/18/16 06:11 Deshawn Bodies Not Reportable 09/18/16 06:11 Hem Pathologist Commnt No 09/18/16 06:11 PT 14.3 Sec. (12.2-14.9) 09/16/16 09:24 INR 1.12 (0.87-1.13) 09/16/16 09:24 APTT 51.3 Sec. (24.2-36.6) H 09/16/16 09:24 Sodium 130 mmol/L (137-145) L 09/18/16 06:11 Potassium 3.4 mmol/L (3.6-5.0) L 09/18/16 06:11 Chloride 94.0 mmol/L (98-107) L 09/18/16 06:11 Carbon Dioxide 24 mmol/L (22-30) 09/18/16 06:11 Anion Gap 15 mmol/L 09/18/16 06:11 BUN 5 mg/dL (9-20) L 09/18/16 06:11 Creatinine 0.5 mg/dL (0.8-1.5) L 09/18/16 06:11 Estimated GFR > 60 ml/min 09/18/16 06:11 BUN/Creatinine Ratio 10.00 % 09/18/16 06:11 Glucose 82 mg/dL (75-100) 09/18/16 06:11 Calcium 8.1 mg/dL (8.4-10.2) L 09/18/16 06:11 Iron 34 ug/dL (49-181) L 09/17/16 15:34 TIBC 201.60 mcg/dL (250-450) L 09/17/16 15:34 Transferrin 144 mg/dl (180-329) L 09/17/16 15:34 Ferritin 658.3 ng/mL (13.0-400.0) H 09/17/16 15:34 Total Bilirubin 2.9 mg/dL (0.1-1.2) H 09/15/16 21:04 AST 21 units/L (5-40) 09/15/16 21:04 ALT 19 units/L (7-56) 09/15/16 21:04 Alkaline Phosphatase 450 units/L (35-129) H 09/15/16 21:04 Total Protein 8.7 g/dL (6.3-8.2) H 09/15/16 21:04 Albumin 2.7 g/dL (3.9-5) L 09/15/16 21:04 Albumin/Globulin Ratio 0.5 % 09/15/16 21:04 Lipase 39 units/L (13-60) 09/15/16 21:04 Urine Color Qi (Yellow) 09/16/16 08:02 Urine Turbidity Clear (Clear) 09/16/16 08:02 Urine pH 6.0 (5.0-7.0) 09/16/16 08:02 Ur Specific [place] 1.021 (1.003-1.030) 09/16/16 08:02 Urine Protein 100 mg/dl mg/dL (Negative) 09/16/16 08:02 Urine Glucose (UA) Neg mg/dL (Negative) 09/16/16 08:02 Urine Ketones Tr mg/dL (Negative) 09/16/16 08:02 Urine Blood Neg (Negative) 09/16/16 08:02 Urine Nitrite Neg (Negative) 09/16/16 08:02 Urine Bilirubin Sm (Negative) 09/16/16 08:02 Urine Ictotest Positive (Negative) 09/16/16 08:02 Urine Urobilinogen 4.0 mg/dL (<2.0) 09/16/16 08:02 Ur Leukocyte Esterase Neg (Negative) 09/16/16 08:02 Urine WBC (Auto) 11.0 /HPF (0.0-6.0) H 09/16/16 08:02 Urine RBC (Auto) 4.0 /HPF (0.0-6.0) 09/16/16 08:02 U Epithel Cells (Auto) < 1.0 /HPF (0-13.0) 09/16/16 08:02 Urine Mucus Few /HPF 09/16/16 08:02
[2016-09-19] MEDS: LOVENOX SUB-Q SCH (21:45)
[2016-09-19] MEDS ORDERED: D5/0.45NS 1,000 ML IV SCH (22:00)
[2016-09-20] MEDS: MORPHINE IV PRN ×5 (01:06→22:20)
[2016-09-20 05:41] LABS: Hematocrit 23.2 % (35.5-45.6); Hemoglobin 7.6 gm/dl (11.8-15.2); Mean Corpuscular HGB Conc 33 % (32-34); Mean Corpuscular Volume 79 fl (84-94); Platelet Count 382 K/mm3 (140-440); Red Blood Count 2.95 M/mm3 (3.65-5.03); Red Cell Distribution Width 19.8 % (13.2-15.2); White Blood Count 8.9 K/mm3 (4.5-11.0)
[2016-09-20 05:42] LABS: Mean Corpuscular Hemoglobin 26 pg (28-32)
[2016-09-20] MEDS: ZOSYN/NS 4.5GM/100ML 4.5 GM/100 ML VIAL IV SCH ×3 (05:56→22:04)
[2016-09-20 05:59] LABS: Anion Gap 17 mmol/L; Blood Urea Nitrogen 2 mg/dL (9-20); Calcium 8.4 mg/dL (8.4-10.2); Carbon Dioxide 24 mmol/L (22-30); Chloride 100.9 mmol/L (98-107); Glucose 81 mg/dL (75-100); Potassium 3.7 mmol/L (3.6-5.0); Sodium 138 mmol/L (137-145)
[2016-09-20 06:58] LABS: Anisocytosis 1+; Basophils % (Manual) 0 % (0.0-1.8); Blastocytes % (Manual) 0 %; Diff Status Complete; Hypochromasia 1+; Platelet Estimate Consistent w Auto; Target Cells Few
[2016-09-20] MEDS: COLACE PO SCH (09:55)
[2016-09-20] MEDS: PEPCID PO SCH (09:55)
[2016-09-20] MEDS ORDERED: NACL 0.9% 1000 ML 1,000 ML IV SCH (13:00)
[2016-09-20] MEDS ORDERED: DIPRIVAN 10 MG/ML IV ONE ×3 (13:28→15:47)
--- NOTE | 2016-09-20 14:08 | Anesthesia Consultation ---
Anesthesia Consult and Med Hx Date of service: 09/20/16 - Airway Anesthetic Teeth Evaluation: Poor (multiple missing teeth), Caps ROM Head & Neck: Adequate Mental/Hyoid Distance: Adequate Mallampati Class: Class II Intubation Access Assessment: Probably Good - Pulmonary Exam CTA: Yes - Pre-Operative Health Status ASA Pre-Surgery Classification: ASA2 Proposed Anesthetic Plan: MAC - Pulmonary Hx Smoking: No Hx Pneumonia: No - Cardiovascular System Hx Hypertension: No - Central Nervous System Hx Neuromuscular Disorder: No - Gastrointestinal Hx Gastroesophageal Reflux Disease: No - Endocrine Hx Renal Disease: No Hx Cirrhosis: Yes Hx Liver Disease: Yes (partial portal vein thrombosis) - Hematic Hx Anemia: Yes Hx Sickle Cell Disease: No - Other Systems Hx Alcohol Use: Yes Hx Substance Use: Yes (marijuana 3 weeks ago) Hx Cancer: No Hx Obesity: No
--- NOTE | 2016-09-20 14:08 | Anesthesia Day of Surgery ---
Anesthesia Day of Surgery - Day of Surgery Patient Examined: Yes Patient H&P Reviewed: Yes Patient is NPO: Yes
[2016-09-20] MEDS ORDERED: WATER FOR IRRIG STERILE IR ONE (14:36)
[2016-09-20] MEDS ORDERED: XYLOCAINE MPF 2% ONE (14:40)
--- NOTE | 2016-09-20 15:10 | Progress Note ---
Assessment and Plan Assessment and plan: Portal vein thrombosis Acute hepatic abscess Microcytic anemia, possible GI loss Medication noncompliance h/o Alcohol abuse Abdominal pain likely due to portal vein thrombosis and hepatic abscess Leukocytosis, likley due to hepatic abscess Hypokalemia, replaced Plan: Patient had extensive workup for possible malignancy during his last admission His CT chest, MRCP, CT abdomen and pelvis during his previous admission did not show any sign for malignancy Plan for EGD and colonoscopy today, will follow the GI recommendation after the procedure continue on Lovenox therapeutic dose every 12 hours, Place on when necessary Ativan for possible alcohol withdrawal continue on zosyn for now hepatic abscess CBC and BMP tomorrow Replace electrolytes as needed History Interval history: Patient seen and examined. Medical records and medication list reviewed. No acute event overnight noted by the RN. plan for EGD and colonoscopy today. Hospitalist Physical - Physical exam Narrative exam: GENERAL: This is well-developed well-nourished -[place] male lying on bed appeared to be in no discomfort. HEENT: Normocephalic. Patient has moist mucous membranes. External auditory canal and nares patent bilaterally. NECK: Supple. Trachea midline. CHEST/LUNGS: Clear to auscultated bilaterally. There is no respiratory distress noted, breathing nonlabored. HEART/CARDIOVASCULAR: Regular in rate and rhythm. ABDOMEN: Abdomen is soft, nontender. Patient has normal bowel sounds. SKIN: There is no rash, no erythrema. Warm and dry. NEUROLOGY: The patient is awake, alert, and oriented. MUSCULOSKELETAL: No joint effusion or tenderness. EXTRIMITY: No edema, cyanosis or clubbing. PSYCH: Cooperative. - Constitutional Vitals: Temp Pulse Resp BP Pulse Ox 98.6 F 67 17 130/72 100 09/20/16 12:32 09/20/16 12:32 09/20/16 12:32 09/20/16 12:32 09/20/16 12:32 Results - Labs CBC & Chem 7: 09/20/16 05:11 09/20/16 05:11 Labs: Laboratory Last Values WBC 8.9 K/mm3 (4.5-11.0) 09/20/16 05:11 RBC 2.95 M/mm3 (3.65-5.03) L 09/20/16 05:11 Hgb 7.6 gm/dl (11.8-15.2) L 09/20/16 05:11 Hct 23.2 % (35.5-45.6) L 09/20/16 05:11 MCV 79 fl (84-94) L 09/20/16 05:11 MCH 26 pg (28-32) L 09/20/16 05:11 MCHC 33 % (32-34) 09/20/16 05:11 RDW 19.8 % (13.2-15.2) H 09/20/16 05:11 Plt Count 382 K/mm3 (140-440) 09/20/16 05:11 Add Manual Diff Complete 09/20/16 05:11 Total Counted 100 09/20/16 05:11 Seg Neuts % (Manual) 67.0 % (40.0-70.0) 09/20/16 05:11 Band Neutrophils % 4.0 % 09/20/16 05:11 Lymphocytes % (Manual) 16.0 % (13.4-35.0) 09/20/16 05:11 Reactive Lymphs % (Man) 0 % 09/20/16 05:11 Monocytes % (Manual) 10.0 % (0.0-7.3) H 09/20/16 05:11 Eosinophils % (Manual) 3.0 % (0.0-4.3) 09/20/16 05:11 Basophils % (Manual) 0 % (0.0-1.8) 09/20/16 05:11 Metamyelocytes % 0 % 09/20/16 05:11 Myelocytes % 0 % 09/20/16 05:11 Promyelocytes % 0 % 09/20/16 05:11 Blast Cells % 0 % 09/20/16 05:11 Nucleated RBC % Not Reportable 09/20/16 05:11 Seg Neutrophils # Man 6.0 K/mm3 (1.8-7.7) 09/20/16 05:11 Band Neutrophils # 0.4 K/mm3 09/20/16 05:11 Lymphocytes # (Manual) 1.4 K/mm3 (1.2-5.4) 09/20/16 05:11 Abs React Lymphs (Man) 0.0 K/mm3 09/20/16 05:11 Monocytes # (Manual) 0.9 K/mm3 (0.0-0.8) H 09/20/16 05:11 Eosinophils # (Manual) 0.3 K/mm3 (0.0-0.4) 09/20/16 05:11 Basophils # (Manual) 0.0 K/mm3 (0.0-0.1) 09/20/16 05:11 Metamyelocytes # 0.0 K/mm3 09/20/16 05:11 Myelocytes # 0.0 K/mm3 09/20/16 05:11 Promyelocytes # 0.0 K/mm3 09/20/16 05:11 Blast Cells # 0.0 K/mm3 09/20/16 05:11 WBC Morphology Not Reportable 09/20/16 05:11 Hypersegmented Neuts Not Reportable 09/20/16 05:11 Hyposegmented Neuts Not Reportable 09/20/16 05:11 Hypogranular Neuts Not Reportable 09/20/16 05:11 Smudge Cells Not Reportable 09/20/16 05:11 Toxic Granulation Not Reportable 09/20/16 05:11 Toxic Vacuolation Not Reportable 09/20/16 05:11 Dohle Bodies Not Reportable 09/20/16 05:11 Pelger-Huet Anomaly Not Reportable 09/20/16 05:11 Ming Rods Not Reportable 09/20/16 05:11 Platelet Estimate Consistent w auto 09/20/16 05:11 Clumped Platelets Not Reportable 09/20/16 05:11 Plt Clumps, EDTA Not Reportable 09/20/16 05:11 Large Platelets Not Reportable 09/20/16 05:11 Giant Platelets Not Reportable 09/20/16 05:11 Platelet Satelliting Not Reportable 09/20/16 05:11 Plt Morphology Comment Not Reportable 09/20/16 05:11 RBC Morphology Not Reportable 09/20/16 05:11 Dimorphic RBCs Not Reportable 09/20/16 05:11 Polychromasia Not Reportable 09/20/16 05:11 Hypochromasia 1+ 09/20/16 05:11 Poikilocytosis Not Reportable 09/20/16 05:11 Anisocytosis 1+ 09/20/16 05:11 Microcytosis Not Reportable 09/20/16 05:11 Macrocytosis Not Reportable 09/20/16 05:11 Spherocytes Not Reportable 09/20/16 05:11 Pappenheimer Bodies Not Reportable 09/20/16 05:11 Sickle Cells Not Reportable 09/20/16 05:11 Target Cells Few 09/20/16 05:11 Tear Drop Cells Not Reportable 09/20/16 05:11 Ovalocytes Not Reportable 09/20/16 05:11 Helmet Cells Not Reportable 09/20/16 05:11 Am[place] Bodies Not Reportable 09/20/16 05:11 [place] Rings Not Reportable 09/20/16 05:11 [place] Cells Not Reportable 09/20/16 05:11 Bite Cells Not Reportable 09/20/16 05:11 Crenated Cell Not Reportable 09/20/16 05:11 Elliptocytes Not Reportable 09/20/16 05:11 Acanthocytes (Spur) Not Reportable 09/20/16 05:11 Rouleaux Not Reportable 09/20/16 05:11 Hemoglobin C Crystals Not Reportable 09/20/16 05:11 Schistocytes Not Reportable 09/20/16 05:11 Malaria parasites Not Reportable 09/20/16 05:11 Deshawn Bodies Not Reportable 09/20/16 05:11 Hem Pathologist Commnt No 09/20/16 05:11 PT 14.3 Sec. (12.2-14.9) 09/16/16 09:24 INR 1.12 (0.87-1.13) 09/16/16 09:24 APTT 51.3 Sec. (24.2-36.6) H 09/16/16 09:24 Sodium 138 mmol/L (137-145) D 09/20/16 05:11 Potassium 3.7 mmol/L (3.6-5.0) 09/20/16 05:11 Chloride 100.9 mmol/L (98-107) 09/20/16 05:11 Carbon Dioxide 24 mmol/L (22-30) 09/20/16 05:11 Anion Gap 17 mmol/L 09/20/16 05:11 BUN 2 mg/dL (9-20) L 09/20/16 05:11 Creatinine 0.5 mg/dL (0.8-1.5) L 09/20/16 05:11 Estimated GFR > 60 ml/min 09/20/16 05:11 BUN/Creatinine Ratio 4.00 % 09/20/16 05:11 Glucose 81 mg/dL (75-100) 09/20/16 05:11 Calcium 8.4 mg/dL (8.4-10.2) 09/20/16 05:11 Iron 34 ug/dL (49-181) L 09/17/16 15:34 TIBC 201.60 mcg/dL (250-450) L 09/17/16 15:34 Transferrin 144 mg/dl (180-329) L 09/17/16 15:34 Ferritin 658.3 ng/mL (13.0-400.0) H 09/17/16 15:34 Total Bilirubin 2.9 mg/dL (0.1-1.2) H 09/15/16 21:04 AST 21 units/L (5-40) 09/15/16 21:04 ALT 19 units/L (7-56) 09/15/16 21:04 Alkaline Phosphatase 450 units/L (35-129) H 09/15/16 21:04 Total Protein 8.7 g/dL (6.3-8.2) H 09/15/16 21:04 Albumin 2.7 g/dL (3.9-5) L 09/15/16 21:04 Albumin/Globulin Ratio 0.5 % 09/15/16 21:04 Lipase 39 units/L (13-60) 09/15/16 21:04 Urine Color Qi (Yellow) 09/16/16 08:02 Urine Turbidity Clear (Clear) 09/16/16 08:02 Urine pH 6.0 (5.0-7.0) 09/16/16 08:02 Ur Specific [place] 1.021 (1.003-1.030) 09/16/16 08:02 Urine Protein 100 mg/dl mg/dL (Negative) 09/16/16 08:02 Urine Glucose (UA) Neg mg/dL (Negative) 09/16/16 08:02 Urine Ketones Tr mg/dL (Negative) 09/16/16 08:02 Urine Blood Neg (Negative) 09/16/16 08:02 Urine Nitrite Neg (Negative) 09/16/16 08:02 Urine Bilirubin Sm (Negative) 09/16/16 08:02 Urine Ictotest Positive (Negative) 09/16/16 08:02 Urine Urobilinogen 4.0 mg/dL (<2.0) 09/16/16 08:02 Ur Leukocyte Esterase Neg (Negative) 09/16/16 08:02 Urine WBC (Auto) 11.0 /HPF (0.0-6.0) H 09/16/16 08:02 Urine RBC (Auto) 4.0 /HPF (0.0-6.0) 09/16/16 08:02 U Epithel Cells (Auto) < 1.0 /HPF (0-13.0) 09/16/16 08:02 Urine Mucus Few /HPF 09/16/16 08:02
--- NOTE | 2016-09-20 15:13 | Post Operative Note ---
Pre-op diagnosis: Anemia Post-op diagnosis: other (Rectal polyp, Grade IV hemorrhoids, Normal UGI tract) Findings: 1. Prominant vessels in stomach, but no esophageal varices and CT showed no gastric varices 2. Scattered colonic diverticulae 3. 5mm rectal polyp, hot snare 4. Grade IV hemorrhoids 5. Fair prep with brown stool in colon; no active bleeding Procedure: EGD, Colonoscopy with hot snare Anesthesia: MAC Surgeon: GEETHA JULIEN Estimated blood loss: minimal Pathology: list (1. Rectal Polyp) Specimen disposition: to lab Condition: stable Disposition: floor (Recs: 1. Hold lovenox until Friday PM. 2. MVI daily. 3. If rectal bleeding over next few months from hemorrhoids (on anticoagulation), he will need surgical consult. 4. Patient should d/c all EtOH.)
[2016-09-20] MEDS ORDERED: PERCOCET 5/325 PO PRN (15:18)
[2016-09-20] MEDS: LOVENOX SUB-Q SCH ×2 (15:38→22:05)
--- NOTE | 2016-09-20 16:19 | Post Anesthesia Evaluation ---
- Post Anesthesia Evaluation Patient Participated: Yes Airway Patent: Yes Stable Respiratory Function: Yes Nausea/Vomiting: No Temp > 96.8F: Yes Pain Manageable: Yes Adequeate Hydration: Yes Anesthesia Complications: No Block Receding Appropriately: Not Applicable Patient on Ventilator: No
[2016-09-20] MEDS: PROTONIX PO SCH (16:36)
--- NOTE | 2016-09-20 17:00 | Operative Report ---
ENDOSCOPY DOCUMENT PROCEDURE PERFORMED: Esophagogastroduodenoscopy as well as colonoscopy with hot snare polypectomy. PREOPERATIVE DIAGNOSIS: Cryptogenic anemia and need for long-term anticoagulation. POSTOPERATIVE DIAGNOSES: Prominent vessels in the stomach, colonic diverticula, rectal polyp, grade 4 hemorrhoids, fair prep in the colon but no active bleeding. ENDOSCOPIST: Jorge Mcfarland MD INSTRUMENT: [employer] video endoscope. MEDICATIONS: MAC anesthesia by [facility]. COMPLICATIONS: No apparent complications. ESTIMATED BLOOD LOSS: Minimal. SPECIMENS: Rectal polyp. IMPLANTS: None. DESIGN PAINTER: None. CONDITION AT COMPLETION: Stable. TECHNIQUE: The patient was informed of the risks and benefits of the procedure. He signed the informed consent to proceed. He was placed in left lateral decubitus position. The above sedative medications were given. His vital signs remained stable throughout the procedure. The instrument was advanced from the mouth to the second portion of the duodenum under direct visualization. At that point, the bowel was insufflated and the endoscope was slowly withdrawn. The bed was then rotated and the colonoscope was advanced from the anus to the cecum under direct visualization. The cecum was identified by the appendiceal orifice and the ileocecal valve. The bowel was then insufflated and the endoscope was slowly withdrawn. The quality of preparation was only fair and there was some semi-liquid brown stool in the colon, but no evidence of bleeding. FINDINGS: 1. Prominent blood vessels seen in the stomach, particularly the fundus, but there were no esophageal varices and the CT scan showed no evidence of gastric varices. 2. Otherwise, normal upper gastrointestinal tract. 3. A few scattered diverticula in the colon, but not actively bleeding. 4. A 5 mm polyp in the rectum, removed with hot snare polypectomy. 5. Grade 4 internal hemorrhoids that prolapsed to the outside. 6. Fair preparation with brown stool in the colon, but no evidence of active bleeding. RECOMMENDATIONS: 1. Hold Lovenox until Friday 8 p.m. given the removal of the polyp with cautery. 2. Multivitamin with iron daily. 3. If the patient develops rectal bleeding over the next few months from hemorrhoids on his anticoagulation, he will need a surgical consult. 4. The patient should discontinue all alcohol. JOB# [id number] SYLVESTER/NTS
[2016-09-20] MEDS ORDERED: SENOKOT S PO SCH ×2 (22:00)
[2016-09-21] MEDS: LOVENOX SUB-Q SCH ×2 (02:45→10:00)
[2016-09-21] MEDS: ZOSYN/NS 4.5GM/100ML 4.5 GM/100 ML VIAL IV SCH (05:34)
[2016-09-21] MEDS: MORPHINE IV PRN (05:35)
--- NOTE | 2016-09-21 06:45 | Gastroenterology Progress Note ---
Assessment and Plan 1) Portal venous thrombosis -Pt needs to cease all EtOH -Start Lovenox this evening -Monitor Hb 2) Anemia -S/P EGD/Colon yesterday; no varices, but very large internal hemorrhoids -If pt bleeds rectally from hemorrhoids due to hemorrhoids, would recommend surgical evaluation for hemorrhoidectomy No further inpatient GI w/u planned. Pt needs office f/u in 2 weeks. Please re -call with any further questions. Thank you! Subjective Date of service: 09/21/16 Principal diagnosis: Portal venous thrombosis Interval history: Pt seen/examined this AM. Doing well and had no acute overnight events. No nausea/vomiting. Tolerated regular diet. He denies any abdominal pain at this time. No fevers, chills. Objective - Constitutional Vitals: Temp Pulse Resp BP Pulse Ox 98.2 F 72 18 121/70 98 09/21/16 00:00 09/21/16 00:00 09/21/16 00:00 09/21/16 00:00 09/20/16 19:18 General appearance: no acute distress - Neck Neck: supple - Respiratory Respiratory: bilateral: CTA - Cardiovascular Rhythm: regular Heart Sounds: Present: S1 & S2 - Extremities Extremities: No edema - Gastrointestinal General gastrointestinal: Present: soft, non-tender, non-distended, normal bowel sounds - Neurologic Neurological: alert and oriented x3 - Psychiatric Psychiatric: appropriate mood/affect - Labs CBC & Chem 7: 09/20/16 05:11 09/20/16 05:11 Labs: Laboratory Results - last 24 hr 09/20/16 05:11 Add Manual Diff Complete Total Counted 100 Seg Neuts % (Manual) 67.0 Band Neutrophils % 4.0 Lymphocytes % (Manual) 16.0 Reactive Lymphs % (Man) 0 Monocytes % (Manual) 10.0 H Eosinophils % (Manual) 3.0 Basophils % (Manual) 0 Metamyelocytes % 0 Myelocytes % 0 Promyelocytes % 0 Blast Cells % 0 Nucleated RBC % Not Reportable Seg Neutrophils # Man 6.0 Band Neutrophils # 0.4 Lymphocytes # (Manual) 1.4 Abs React Lymphs (Man) 0.0 Monocytes # (Manual) 0.9 H Eosinophils # (Manual) 0.3 Basophils # (Manual) 0.0 Metamyelocytes # 0.0 Myelocytes # 0.0 Promyelocytes # 0.0 Blast Cells # 0.0 WBC Morphology Not Reportable Hypersegmented Neuts Not Reportable Hyposegmented Neuts Not Reportable Hypogranular Neuts Not Reportable Smudge Cells Not Reportable Toxic Granulation Not Reportable Toxic Vacuolation Not Reportable Dohle Bodies Not Reportable Pelger-Huet Anomaly Not Reportable Ming Rods Not Reportable Platelet Estimate Consistent w auto Clumped Platelets Not Reportable Plt Clumps, EDTA Not Reportable Large Platelets Not Reportable Giant Platelets Not Reportable Platelet Satelliting Not Reportable Plt Morphology Comment Not Reportable RBC Morphology Not Reportable Dimorphic RBCs Not Reportable Polychromasia Not Reportable Hypochromasia 1+ Poikilocytosis Not Reportable Anisocytosis 1+ Microcytosis Not Reportable Macrocytosis Not Reportable Spherocytes Not Reportable Pappenheimer Bodies Not Reportable Sickle Cells Not Reportable Target Cells Few Tear Drop Cells Not Reportable Ovalocytes Not Reportable Helmet Cells Not Reportable [place] Bodies Not Reportable [place] Rings Not Reportable [place] Cells Not Reportable Bite Cells Not Reportable Crenated Cell Not Reportable Elliptocytes Not Reportable Acanthocytes (Spur) Not Reportable Rouleaux Not Reportable Hemoglobin C Crystals Not Reportable Schistocytes Not Reportable Malaria parasites Not Reportable Deshawn Bodies Not Reportable Hem Pathologist Commnt No - Imaging CT scan: report reviewed
[2016-09-21 09:40] VITALS: BP 109/70
[2016-09-21] MEDS: PROTONIX PO SCH (09:54)
[2016-09-21] MEDS ORDERED: THERAGRAN-M Tab PO SCH (10:00)
[2016-09-21] MEDS ORDERED: NACL 0.9% 500 ML 500 ML IV ONE (11:06)
--- NOTE | 2016-09-21 11:14 | Discharge Summary ---
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 GI Notified:: answering service Phone number called:: [phone] Was contact made?: Yes If yes, spoke with:: jeri Time called:: 17:46 Comment:: SPOKE TO [id number] Primary care physician: [employer] COORDINATOR Hospitalization Condition: Fair Hospital course: Discharge diagnosis: Portal vein thrombosis Acute hepatic abscess Microcytic anemia, possible GI loss due to hemorrhoids Medication noncompliance h/o Alcohol abuse Abdominal pain likely due to portal vein thrombosis and hepatic abscess Leukocytosis, likley due to hepatic abscess Hypokalemia, replaced Large hemorrhoids Disposition: DISCHARGED TO HOME OR SELFCARE Time spent for discharge: 34 minutes Core Measure Documentation - Palliative Care Palliative Care/ Comfort Measures: Not Applicable - Core Measures Any of the following diagnoses?: none Exam - Physical Exam Narrative exam: GENERAL: This is well-developed well-nourished -[place] male lying on bed appeared to be in no discomfort. HEENT: Normocephalic. Patient has moist mucous membranes. External auditory canal and nares patent bilaterally. NECK: Supple. Trachea midline. CHEST/LUNGS: Clear to auscultated bilaterally. There is no respiratory distress noted, breathing nonlabored. HEART/CARDIOVASCULAR: Regular in rate and rhythm. ABDOMEN: Abdomen is soft, nontender. Patient has normal bowel sounds. SKIN: There is no rash, no erythrema. Warm and dry. NEUROLOGY: The patient is awake, alert, and oriented. MUSCULOSKELETAL: No joint effusion or tenderness. EXTRIMITY: No edema, cyanosis or clubbing. PSYCH: Cooperative. - Constitutional Vitals: Temp Pulse Resp BP Pulse Ox 97.6 F 77 15 109/70 100 09/21/16 07:55 09/21/16 07:55 09/21/16 07:55 09/21/16 07:55 09/21/16 07:55 Plan Activity: advance as tolerated Weight Bearing Status: Weight Bear as Tolerated Diet: low cholesterol, low salt Follow up with: PRIMARY CARE, [Primary Care Provider] - 3-5 Days Prescriptions: Amoxicillin/K Clav Tab [Augmentin 875 mg] 1 tab PO Q12HR #28 tab Apixaban [Eliquis] 5 mg PO BID #60 tablet Ferrous Gluconate [Fergon 325 MG tab] 325 mg PO BID #60 tablet Hydrocortisone 2.5% [Hytone 2.5% CREAM] 1 applicatio TP TID 10 Days oxyCODONE /ACETAMINOPHEN [Percocet 5/325 mg] 1 tab PO Q8H PRN #15 tablet PRN Reason: Pain, Moderate (4-6)
[2016-09-21] MEDS ORDERED: LOVENOX SUB-Q SCH (22:00)
== END 2016-09-21 14:34 | disposition home or self-care (01) | DRG 441 ==
LOC: ED 20:26 → 3A 09-16 12:37
PROVIDERS: ADMIT Internal Medicine; ATTEND Internal Medicine
PROC: 0DBP8ZZ Excision of Rectum, Via Natural or Artificial Opening Endoscopic (ICD-10-PCS; principal; 2016-09-20)
PROC: 0DJ08ZZ Inspection of Upper Intestinal Tract, Via Natural or Artificial Opening Endoscopic (ICD-10-PCS; 2016-09-20)
DX: K75.0 Abscess of liver (principal); I81 Portal vein thrombosis; M19.90 Unspecified osteoarthritis, unspecified site; F17.200 Nicotine dependence, unspecified, uncomplicated; F10.10 Alcohol abuse, uncomplicated; E87.6 Hypokalemia; D50.9 Iron deficiency anemia, unspecified; K57.30 Diverticulosis of large intestine without perforation or abscess without bleeding; K62.1 Rectal polyp; Z80.9 Family history of malignant neoplasm, unspecified; Z91.14 Patient's other noncompliance with medication regimen; K64.3 Fourth degree hemorrhoids
CPT/HCPCS: 36415; 74177; 80048; 80053; 81001; 82728; 83550; 83690; 84466; 85007; 85025; 85027; 85610; 85730; 87040; 88305; 88342; 96365; 96366; 96375; J1170; J1650; J2060; J2270; J2405; J2543; J2704; J7030; J7040; Q0161; Q9967

== ENCOUNTER 2017-03-16 20:36 | Emergency (ER) | payer MEDICAID ==
[2017-03-16] MEDS ORDERED: BOOSTRIX IM ONE (23:21)
--- NOTE | 2017-03-16 23:27 | Emergency Department Report ---
HPI - General Chief Complaint: Wound/Laceration Time Seen by Provider: 03/16/17 23:15 - HPI HPI: Kong 16 The patient is a 56-year-old male presenting with a chief complaint laceration to right index finger. Patient states earlier this evening he attempted to sit down and folding chair but his right index finger was caught in the mechanism cutting his finger. Patient knowledges daily consumption of alcohol. Location: Right index finger Duration: [see above] Quality: Pain Severity: Moderate Modifying factors: [see above] Context: [see above] Mode of transportation: [not driving] ED Past Medical Hx - Past Medical History Hx Liver Disease: Yes (partial portal vein thrombosis) Hx Arthritis: Yes Additional medical history: Irregular heartbeat - Family History Family history: no significant - Social History Smoking Status: Never Smoker Substance Use Type: Alcohol, Cocaine, Marijuana - Medications Home Medications: Home Medications Medication Instructions Recorded Confirmed Last Taken Type Amoxicillin/K Clav Tab [Augmentin 1 tab PO Q12HR #28 tab 09/21/16 Unknown Rx 875 mg] Apixaban [Eliquis] 5 mg PO BID #60 tablet 09/21/16 Unknown Rx Ferrous Gluconate [Fergon 325 MG 325 mg PO BID #60 tablet 09/21/16 Unknown Rx tab] Hydrocortisone 2.5% [Hytone 2.5% 1 applicatio TP TID 10 Days 09/21/16 Unknown Rx CREAM] oxyCODONE /ACETAMINOPHEN [Percocet 1 tab PO Q8H PRN #15 tablet 09/21/16 Unknown Rx 5/325 mg] Cephalexin [Keflex] 500 mg PO Q6HR #40 capsule 03/17/17 Unknown Rx HYDROcodone/APAP 5-325 [[place] 1 - 2 each PO Q6HR PRN #20 tablet 03/17/17 Unknown Rx 5/325] ED Review of Systems ROS: Stated complaint: RT FINGER INJURY Other details as noted in HPI Comment: All other systems reviewed and negative Constitutional: denies: chills, fever Eyes: denies: eye pain, eye discharge, vision change ENT: denies: ear pain, throat pain Respiratory: denies: cough, shortness of breath, wheezing Cardiovascular: denies: chest pain, palpitations Endocrine: no symptoms reported Gastrointestinal: denies: abdominal pain, nausea, diarrhea Genitourinary: denies: urgency, dysuria Musculoskeletal: myalgia Skin: other Neurological: denies: headache, weakness, paresthesias Psychiatric: denies: anxiety, depression Hematological/Lymphatic: denies: easy bleeding, easy bruising Physical Exam - Physical Exam Vital Signs: Vital Signs 03/16/17 20:49 Temperature 98.3 F Pulse Rate 89 Respiratory 18 Rate Blood Pressure 143/91 O2 Sat by Pulse 98 Oximetry Physical Exam: GENERAL: The patient is well-developed well-nourished male lying on stretcher very talkative not appearing to be in acute distress. [] HEENT: Normocephalic. Atraumatic. Extraocular motions are intact. Patient has moist mucous membranes. NECK: Supple. Trachea midline CHEST/LUNGS: Clear to auscultation. There is no respiratory distress noted. HEART/CARDIOVASCULAR: Regular. There is no tachycardia. There is no gallop rub or murmur. ABDOMEN: Abdomen is soft, nontender. Patient has normal bowel sounds. There is no abdominal distention. SKIN: NEURO: The patient is awake, alert, and oriented. The patient is cooperative. The patient has normal speech MUSCULOSKELETAL: ED Course Vital Signs 03/16/17 20:49 Temperature 98.3 F Pulse Rate 89 Respiratory 18 Rate Blood Pressure 143/91 O2 Sat by Pulse 98 Oximetry ED Medical Decision Making - Lab Data Result diagrams: 03/17/17 00:00 Laboratory Tests 03/17/17 03/17/17 00:00 00:00 WBC 5.7 RBC 4.41 Hgb 12.3 Hct 37.8 MCV 86 MCH 28 MCHC 33 RDW 16.6 H Plt Count 254 Lymph % (Auto) 39.2 H Walker % (Auto) 8.7 H Eos % (Auto) 2.9 Baso % (Auto) 1.3 Lymph # 2.2 Walker # 0.5 Eos # 0.2 Baso # 0.1 Seg Neutrophils % 47.9 Seg Neutrophils # 2.7 Plasma/Serum Alcohol 0.31 H - Radiology Data Radiology results: image reviewed (right index finger x-ray) interpreted by me: Right index finger x-ray-open tuft fracture - Medical Decision Making Patient has a significantly elevated ethanol level 0.31. Banana bag has been ordered. The patient will not be discharged home until his ethanol level is less than 0.08 or less he has a family member or responsible friend willing to assume responsibility for his care and pick him up. This has been discussed with the nurse Rita - Differential Diagnosis open tuft fracture, finger laceration, partial amputation Critical care attestation.: If time is entered above; I have spent that time in minutes in the direct care of this critically ill patient, excluding procedure time. 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 Return to the emergency department immediately should you develop worsening symptoms, fever, inability to tolerate food or liquid or any other concerns. Prescriptions: Cephalexin [Keflex] 500 mg PO Q6HR #40 capsule HYDROcodone/APAP 5-325 [[place] 5/325] 1 - 2 each PO Q6HR PRN #20 tablet PRN Reason: Pain Referrals: ROGER LEZAMA MD [Staff Physician] - QU[place] (Dr. Lezama is an orthopedic surgeon. Please follow up with him for further evaluation) Time of Disposition: 01:20 (d/c to family or when etoh <0.08) Blank Doc - Documentation Documentation: Laceration note Consent was obtained verbally Length of wound: 3 cm The wound was anesthetized with [ lidocaine 1%/bupivacaine 0.5%] approximately 10 mL's utilizing a digital block Wound was copiously irrigated with normal saline Site was prepped with Betadine Sutures used were [5.0 Ethilon] The number of sutures placed in a simple interrupted fashion 8 The wound had adequate approximation The wound had [good] hemostasis Xeroform gauze was applied and the wound was dressed Suture removal discussed with patient and informed the sutures need to be removed in 7-10 days Laceration type: Simple There were no complications
[2017-03-17] MEDS ORDERED: MARCAINE 0.5% INFILTRATI ONE (00:05)
[2017-03-17] MEDS ORDERED: XYLOCAINE 1% 20 mL ONE (00:05)
[2017-03-17] MEDS ORDERED: NACL 0.9% 500 ML IR ONE (00:08)
[2017-03-17 00:42] LABS: Basophils % (Auto) 1.3 % (0.0-1.8); Eosinophils % (Auto) 2.9 % (0.0-4.3); Hematocrit 37.8 % (35.5-45.6); Hemoglobin 12.3 gm/dl (11.8-15.2); Mean Corpuscular HGB Conc 33 % (32-34); Mean Corpuscular Hemoglobin 28 pg (28-32); Mean Corpuscular Volume 86 fl (84-94); Platelet Count 254 K/mm3 (140-440); Red Blood Count 4.41 M/mm3 (3.65-5.03); Red Cell Distribution Width 16.6 % (13.2-15.2); White Blood Count 5.7 K/mm3 (4.5-11.0)
[2017-03-17] MEDS ORDERED: ANCEF IM ONE (01:13)
[2017-03-17] MEDS ORDERED: VITAMIN B-1 100 MG, FOLVITE 1 MG, INFUVITE 10 ML, MAGNESIUM SULFATE 2 GM in NACL 0.9% 1... IV ONE (01:14)
[2017-03-17] MEDS ORDERED: ceFAZolin 2 GM in NACL 0.9% 100 ML IV ONE (01:15)
[2017-03-17] MEDS ORDERED: MOTRIN PO ONE (06:54)
--- NOTE | 2017-03-17 07:25 | XRay Report ---
RIGHT FINGERS, 3 VIEWS: History: Right index finger injury. Findings: A bandage has been placed over the distal index finger. There is a complex soft tissue injury to the distal index finger. A displaced tuft fracture is also identified. No obvious foreign body or joint pathology. Impression: Tuft fracture of the index finger with associated complex soft tissue injury.
[2017-03-17 10:30] VITALS: BP 114/76
== END 2017-03-17 10:30 | disposition home or self-care (01) ==
LOC: ED 20:36
DX: S61.210A Laceration without foreign body of right index finger without damage to nail, initial encounter (principal); F10.10 Alcohol abuse, uncomplicated; M19.90 Unspecified osteoarthritis, unspecified site; F14.10 Cocaine abuse, uncomplicated; F12.10 Cannabis abuse, uncomplicated; W23.0XXA Caught, crushed, jammed, or pinched between moving objects, initial encounter; Y93.89 Activity, other specified; Y99.8 Other external cause status; Y92.89 Other specified places as the place of occurrence of the external cause
CPT/HCPCS: 12002; 36415; 73140; 85025; 90471; 90715; 96365; 96367; 99284; G0480; J0690; J3411; J3475; J7030; 80320

== ENCOUNTER 2017-05-10 00:10 | Emergency (ER) | payer MEDICAID ==
[2017-05-10 01:59] LABS: Basophils % (Auto) 0.8 % (0.0-1.8); Eosinophils % (Auto) 2.5 % (0.0-4.3); Hematocrit 38.1 % (35.5-45.6); Hemoglobin 12.5 gm/dl (11.8-15.2); Mean Corpuscular HGB Conc 33 % (32-34); Mean Corpuscular Hemoglobin 28 pg (28-32); Mean Corpuscular Volume 84 fl (84-94); Platelet Count 226 K/mm3 (140-440); Red Blood Count 4.54 M/mm3 (3.65-5.03); Red Cell Distribution Width 16.4 % (13.2-15.2)
[2017-05-10 03:23] LABS: Anion Gap 20 mmol/L; BUN/Creatinine Ratio 6; Blood Urea Nitrogen 5 mg/dL (9-20); Calcium 8.7 mg/dL (8.4-10.2); Carbon Dioxide 22 mmol/L (22-30); Glucose 79 mg/dL (75-100); Potassium 3.8 mmol/L (3.6-5.0); Sodium 144 mmol/L (137-145)
[2017-05-10 07:54] VITALS: BP 137/79
[2017-05-10 08:02] LABS: Urine Drugs of Abuse Note Disclamer
[2017-05-10 08:21] LABS: Bilirubin,Urine NEG (Negative); Blood,Urine NEG (Negative); Ketones,Urine NEG (Negative); Leukocyte Esterase,Urine NEG (Negative); Mucus,Urine FEW /HPF; Nitrite,Urine NEG (Negative); Protein,Urine <15 mg/dL mg/dL (Negative)
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
== END 2017-05-10 11:59 | disposition home or self-care (01) ==
LOC: ED 00:10 → EEVIPCON 00:10 → ED 11:59
DX: M54.9 Dorsalgia, unspecified (principal); G89.29 Other chronic pain; M25.512 Pain in left shoulder; F10.10 Alcohol abuse, uncomplicated
CPT/HCPCS: 36415; 80048; 80307; 81001; 85025; 99283; G0480; 80320

== ENCOUNTER 2018-03-02 07:33 | Emergency (ER) | payer SELFPAY ==
[2018-03-02 21:09] VITALS: BP 112/80
[2018-03-02] MEDS ORDERED: MOTRIN PO ONE (22:54)
--- NOTE | 2018-03-02 22:59 | Emergency Department Report ---
ED Lower Extremity HPI - General Chief Complaint: Extremity Injury, Lower Stated Complaint: POSS BROKEN LEG Time Seen by Provider: 03/02/18 22:53 Source: EMS Mode of arrival: Wheelchair Limitations: Other - History of Present Illness Initial Comments: There is a 57-year-old -[place] male states that the fall 1 week ago with right leg pain swelling deformity [place] [facility] [place] contusion questionable chip fracture subjective per patient states pain not improving question x-ray today is no new following injury or trauma no redness swelling or deformity patient ambulated with 1 crutch assistive device pain is 5/10 aching no numbness no tingling Complaint: leg injury Onset/Timin -: week(s) Injury: Leg: Right Type of Injury: blunt, other (fall ) Place: home Severity: moderate Severity scale (0 -10): 5 Improves With: nothing Worsens With: weight bearing, movement, palpation Context: fall Associated Symptoms: swelling, able to partially bear weight. denies: snap/pop sensation, numbness, tingling - Related Data Previous Rx's Medication Instructions Recorded Last Taken Type Amoxicillin/K Clav Tab [Augmentin 1 tab PO Q12HR #28 tab 09/21/16 Unknown Rx 875 mg] Apixaban [Eliquis] 5 mg PO BID #60 tablet 09/21/16 Unknown Rx Ferrous Gluconate [Fergon 325 MG 325 mg PO BID #60 tablet 09/21/16 Unknown Rx tab] Hydrocortisone 2.5% [Hytone 2.5% 1 applicatio TP TID 10 Days tube 09/21/16 Unknown Rx CREAM] oxyCODONE /ACETAMINOPHEN [Percocet 1 tab PO Q8H PRN #15 tablet 09/21/16 Unknown Rx 5/325 mg] Cephalexin [Keflex] 500 mg PO Q6HR #40 capsule 03/17/17 Unknown Rx HYDROcodone/APAP 5-325 [[place] 1 - 2 each PO Q6HR PRN #20 tablet 03/17/17 Unknown Rx 5/325] HYDROcodone/APAP 5-325 [[place] 1 each PO Q6HR PRN #12 tablet 03/03/18 Unknown Rx 5/325] Allergies Allergy/AdvReac Type Severity Reaction Status Date / Time No Known Allergies Allergy Verified 07/20/16 06:07 ED Review of Systems ROS: Stated complaint: POSS BROKEN LEG Other details as noted in HPI Constitutional: denies: chills, fever Eyes: denies: eye pain, eye discharge, vision change ENT: denies: ear pain, throat pain Respiratory: denies: cough, shortness of breath, wheezing Cardiovascular: denies: chest pain, palpitations Endocrine: no symptoms reported Gastrointestinal: denies: abdominal pain, nausea, diarrhea Genitourinary: denies: urgency, dysuria Musculoskeletal: as per HPI, arthralgia, myalgia. denies: joint swelling Skin: denies: rash, lesions Neurological: denies: headache, weakness, paresthesias Psychiatric: denies: anxiety, depression Hematological/Lymphatic: denies: easy bleeding, easy bruising ED Past Medical Hx - Past Medical History Hx Hypertension: No Hx Liver Disease: Yes (partial portal vein thrombosis) Hx Renal Disease: No Hx Sickle Cell Disease: No Hx Arthritis: Yes Hx Psychiatric Treatment: Yes (alcohol abuse) Additional medical history: Irregular heartbeat - Social History Smoking Status: Current Every Day Smoker Substance Use Type: Alcohol - Medications Home Medications: Home Medications Medication Instructions Recorded Confirmed Last Taken Type Amoxicillin/K Clav Tab [Augmentin 1 tab PO Q12HR #28 tab 09/21/16 Unknown Rx 875 mg] Apixaban [Eliquis] 5 mg PO BID #60 tablet 09/21/16 Unknown Rx Ferrous Gluconate [Fergon 325 MG 325 mg PO BID #60 tablet 09/21/16 Unknown Rx tab] Hydrocortisone 2.5% [Hytone 2.5% 1 applicatio TP TID 10 Days tube 09/21/16 Unknown Rx CREAM] oxyCODONE /ACETAMINOPHEN [Percocet 1 tab PO Q8H PRN #15 tablet 09/21/16 Unknown Rx 5/325 mg] Cephalexin [Keflex] 500 mg PO Q6HR #40 capsule 03/17/17 Unknown Rx HYDROcodone/APAP 5-325 [[place] 1 - 2 each PO Q6HR PRN #20 tablet 03/17/17 Unknown Rx 5/325] HYDROcodone/APAP 5-325 [[place] 1 each PO Q6HR PRN #12 tablet 03/03/18 Unknown Rx 5/325] ED Physical Exam - General Limitations: Other General appearance: alert, in no apparent distress - Head Head exam: Present: atraumatic, normocephalic - Eye Eye exam: Present: normal appearance - ENT ENT exam: Present: mucous membranes moist - Neck Neck exam: Present: normal inspection - Respiratory Respiratory exam: Present: normal lung sounds bilaterally. Absent: respiratory distress - Cardiovascular Cardiovascular Exam: Present: regular rate, normal rhythm. Absent: systolic murmur, diastolic murmur, rubs, gallop - GI/Abdominal GI/Abdominal exam: Present: soft, normal bowel sounds - Rectal Rectal exam: Present: deferred - Extremities Exam Extremities exam: Present: normal inspection, full ROM, tenderness (right lateral tib /fib ), normal capillary refill. Absent: pedal edema, joint swelling, calf tenderness - Expanded Lower Extremity Exam Right Lower Leg exam: Present: full ROM, tenderness (right lateral tib no stepoff mild ecchymosis pain to palpation partal weight being ppepb+2 beta tester <3 sec ), swelling, ecchymosis. Absent: abrasion, laceration, deformity, crepidus, dislocation, erythema, palpable cord, Mauri's sign (righ lateral tib no stepoff no crepitus no deformity no ecchymosis ) Ankle exam: Present: normal inspection, full ROM Foot/Toe exam: Present: normal inspection, full ROM Neuro vascular tendon exam: Present: no vascular compromise. Absent: pulse deficit, abnormal cap refill, motor deficit, sensory deficit, tendon deficit, extremity cold to touch, pallor, abnormal 2-point discrimination, decreased fine /light touch, foot drop, peroneal nerve deficit, significant pain with passive ROM of distal joint Gait: Positive: observed and limited by pain - Back Exam Back exam: Present: normal inspection, full ROM. Absent: CVA tenderness (R), CVA tenderness (L), muscle spasm, paraspinal tenderness, vertebral tenderness - Neurological Exam Neurological exam: Present: alert, oriented X3, CN II-XII intact, normal gait, reflexes normal. Absent: motor sensory deficit - Expanded Neurological Exam Expanded Patient oriented to: Present: person, place, time Speech: Present: fluid speech Cranial nerves: EOM's Intact: Normal, Gag Reflex: Normal, Tongue Deviation: Normal, Nystagmus: Normal Sensory exam: Upper Extremity Light Touch: Normal, Upper Extremity Pin Prick: Normal, Upper Extremity Temperature: Normal, UE 2 Point Discrimination: Normal, Lower Extremity Light Touch: Normal, Lower Extremity Pin Prick: Normal, Lower Extremity Temperature: Normal, LE 2 Point Discrimination: Normal Motor strength exam: RUE: 5, LUE: 5, RLE: 5, LLE: 5 DTR: knee (R): 2+, knee (L): 2+, ankle (R): 2+, ankle (L): 2+ Best Eye Response (Sudha): (4) open spontaneously Best Motor Response (Sudha): (6) obeys commands Best Verbal Response ([place]): (5) oriented Sudha Total: 15 - Psychiatric Psychiatric exam: Present: normal affect, normal mood - Skin Skin exam: Present: warm, dry, intact, normal color. 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 splint check completed via two finger insertion ppepb+2 spacing is appropriate, Critical care attestation.: If time is entered above; I have spent that time in minutes in the direct care of this critically ill patient, excluding procedure time. ED Disposition Clinical Impression: Closed fracture of proximal fibula Qualifiers: Encounter type: initial encounter Fracture morphology: other fracture Laterality: right Qualified Code(s): S82.831A - Other fracture of upper and lower end of right fibula, initial encounter for closed fracture Disposition: TO HOME OR SELFCARE Is pt being admited?: No Does the pt Need Aspirin: No Condition: Good Instructions: Leg Fracture (ED), Crutch Instructions (ED), Knee Immobilizer (ED ) Prescriptions: HYDROcodone/APAP 5-325 [[place] 5/325] 1 each PO Q6HR PRN #12 tablet PRN Reason: Pain Referrals: ROGER DAVIS MD [Staff Physician] - 3-5 Days Forms: Work/School Release Form(ED) Time of Disposition: 00:13
--- NOTE | 2018-03-02 23:41 | XRay Report ---
FINAL REPORT EXAM: XR TIBIA FIBULA 2V RT HISTORY: pain swelling right lateral leg pain after a TV fell on it while moving it 2 weeks ago. TECHNIQUE: Frontal and lateral views right tibia and fibula Comparison: None FINDINGS: There is a comminuted and mildly displaced fracture through the proximal diaphysis of the fibula with associated soft tissue swelling. There is no evidence of fracture of the tibia. There is degenerative change of the tibiofemoral and patellofemoral joints with joint space loss and osteophyte formation. IMPRESSION: 1. Comminuted and mildly displaced fracture proximal diaphysis of the fibula with associated soft tissue swelling. 2. Degenerative change tibiofemoral and patellofemoral joints.
[2018-03-02] MEDS ORDERED: NORCO 5/325 PO ONE (23:55)
== END 2018-03-03 00:15 | disposition home or self-care (01) ==
LOC: ED 07:33
DX: S82.831A Other fracture of upper and lower end of right fibula, initial encounter for closed fracture (principal); M19.90 Unspecified osteoarthritis, unspecified site; F17.200 Nicotine dependence, unspecified, uncomplicated; W18.39XA Other fall on same level, initial encounter; Y93.89 Activity, other specified; Y92.89 Other specified places as the place of occurrence of the external cause; Y99.8 Other external cause status

== ENCOUNTER 2018-03-26 00:30 | Emergency (ER) | payer SELFPAY ==
[2018-03-26 01:13] VITALS: BP 113/61
--- NOTE | 2018-03-26 05:21 | Emergency Department Report ---
ED General Adult HPI - General Chief complaint: Extremity Injury, Lower Stated complaint: LEG PAIN Time Seen by Provider: 03/26/18 05:17 Source: patient Mode of arrival: Wheelchair Limitations: No Limitations - History of Present Illness Initial comments: 57-year-old Stateless male dx with ? righ tib fib fracturen 03/02/2018 who presents for medication refill states he is on hydrocodone for leg fracture however has not seen orthopedics patient denies new injury fall or trauma today' s pain is 4/10 aching worse at night bleed by rest elevation hydrocodone . No other exacerbating or relieving factors Onset/Timin -: week(s) Location: lower extremity Radiation: non-radiation Severity scale (0 -10): 4 Quality: aching Consistency: intermittent Improves with: rest Worsens with: movement Associated Symptoms: denies other symptoms - Related Data Previous Rx's Medication Instructions Recorded Last Taken Type Amoxicillin/K Clav Tab [Augmentin 1 tab PO Q12HR #28 tab 09/21/16 Unknown Rx 875 mg] Apixaban [Eliquis] 5 mg PO BID #60 tablet 09/21/16 Unknown Rx Ferrous Gluconate [Fergon 325 MG 325 mg PO BID #60 tablet 09/21/16 Unknown Rx tab] Hydrocortisone 2.5% [Hytone 2.5% 1 applicatio TP TID 10 Days tube 09/21/16 Unknown Rx CREAM] oxyCODONE /ACETAMINOPHEN [Percocet 1 tab PO Q8H PRN #15 tablet 09/21/16 Unknown Rx 5/325 mg] HYDROcodone/APAP 5-325 [[place] 1 - 2 each PO Q6HR PRN #20 tablet 03/17/17 Unknown Rx 5/325] cephALEXin [Keflex] 500 mg PO Q6HR #40 capsule 03/17/17 Unknown Rx HYDROcodone/APAP 5-325 [[place] 1 each PO Q6HR PRN #12 tablet 03/03/18 Unknown Rx 5/325] Acetaminophen [Tylenol Extra 1,000 mg PO QID #60 tablet 03/26/18 Unknown Rx Strength] Allergies Allergy/AdvReac Type Severity Reaction Status Date / Time No Known Allergies Allergy Verified 07/20/16 06:07 ED Review of Systems ROS: Stated complaint: LEG PAIN Other details as noted in HPI Constitutional: denies: chills, fever Eyes: denies: eye pain, eye discharge, vision change ENT: denies: ear pain, throat pain Respiratory: denies: cough, shortness of breath, wheezing Cardiovascular: denies: chest pain, palpitations Endocrine: no symptoms reported Gastrointestinal: denies: abdominal pain, nausea, diarrhea Genitourinary: denies: urgency, dysuria Musculoskeletal: myalgia Skin: denies: rash, lesions Neurological: denies: headache, weakness, numbness, paresthesias, vertigo Psychiatric: denies: anxiety, depression Hematological/Lymphatic: denies: easy bleeding, easy bruising ED Past Medical Hx - Past Medical History Hx Hypertension: No Hx Liver Disease: Yes (partial portal vein thrombosis) Hx Renal Disease: No Hx Sickle Cell Disease: No Hx Arthritis: Yes Hx Psychiatric Treatment: Yes (alcohol abuse) Additional medical history: Irregular heartbeat - Surgical History Past Surgical History?: No - Social History Smoking Status: Current Every Day Smoker Substance Use Type: Alcohol, Marijuana - Medications Home Medications: Home Medications Medication Instructions Recorded Confirmed Last Taken Type Amoxicillin/K Clav Tab [Augmentin 1 tab PO Q12HR #28 tab 09/21/16 Unknown Rx 875 mg] Apixaban [Eliquis] 5 mg PO BID #60 tablet 09/21/16 Unknown Rx Ferrous Gluconate [Fergon 325 MG 325 mg PO BID #60 tablet 09/21/16 Unknown Rx tab] Hydrocortisone 2.5% [Hytone 2.5% 1 applicatio TP TID 10 Days tube 09/21/16 Unknown Rx CREAM] oxyCODONE /ACETAMINOPHEN [Percocet 1 tab PO Q8H PRN #15 tablet 09/21/16 Unknown Rx 5/325 mg] HYDROcodone/APAP 5-325 [[place] 1 - 2 each PO Q6HR PRN #20 tablet 03/17/17 Unknown Rx 5/325] cephALEXin [Keflex] 500 mg PO Q6HR #40 capsule 03/17/17 Unknown Rx HYDROcodone/APAP 5-325 [[place] 1 each PO Q6HR PRN #12 tablet 03/03/18 Unknown Rx 5/325] Acetaminophen [Tylenol Extra 1,000 mg PO QID #60 tablet 03/26/18 Unknown Rx Strength] ED Physical Exam - General Limitations: No Limitations General appearance: alert, in no apparent distress - Head Head exam: Present: atraumatic, normocephalic - Eye Eye exam: Present: normal appearance - ENT ENT exam: Present: mucous membranes moist - Neck Neck exam: Present: normal inspection - Respiratory Respiratory exam: Present: normal lung sounds bilaterally. Absent: respiratory distress - Cardiovascular Cardiovascular Exam: Present: regular rate, normal rhythm. Absent: systolic murmur, diastolic murmur, rubs, gallop - GI/Abdominal GI/Abdominal exam: Present: soft, normal bowel sounds - Rectal Rectal exam: Present: deferred - exam: Present: normal inspection - Extremities Exam Extremities exam: Present: full ROM, normal capillary refill. Absent: tenderness, pedal edema, joint swelling, calf tenderness - Expanded Lower Extremity Exam Right Lower Leg exam: Present: full ROM, tenderness. Absent: swelling, abrasion, laceration, ecchymosis, deformity, crepidus, dislocation, erythema, palpable cord, Mauri's sign Neuro vascular tendon exam: Present: no vascular compromise. Absent: pulse deficit, abnormal cap refill, motor deficit, sensory deficit, tendon deficit, extremity cold to touch, pallor, abnormal 2-point discrimination, decreased fine /light touch, foot drop, peroneal nerve deficit, significant pain with passive ROM of distal joint Gait: Positive: observed and limited by pain ED Course Vital Signs 03/26/18 01:05 Temperature 98.1 F Pulse Rate 90 Respiratory 16 Rate Blood Pressure 113/61 O2 Sat by Pulse 99 Oximetry ED Medical Decision Making - Medical Decision Making Patient seeking medication refill advised to See orthopedics for controlled substance we'll prescribe Tylenol [place] rub patient will follow with orthopedic surgery in 2-3 days for reevaluation patient verbalizes agreement and understanding of same DC'd home in stable condition at this time Critical care attestation.: If time is entered above; I have spent that time in minutes in the direct care of this critically ill patient, excluding procedure time. ED Disposition Clinical Impression: Musculoskeletal pain of extremity Disposition: DC-01 TO HOME OR SELFCARE Is pt being admited?: No Does the pt Need Aspirin: No Condition: Good Instructions: Musculoskeletal Pain (ED) Prescriptions: Acetaminophen [Tylenol Extra Strength] 1,000 mg PO QID #60 tablet Referrals: ROGER DAVIS MD [Staff Physician] - 3-5 Days Forms: Work/School Release Form(ED) Time of Disposition: 05:29
== END 2018-03-26 05:38 | disposition home or self-care (01) ==
LOC: ED 00:30
DX: M79.604 Pain in right leg (principal); M19.90 Unspecified osteoarthritis, unspecified site; F17.200 Nicotine dependence, unspecified, uncomplicated; F12.10 Cannabis abuse, uncomplicated
CPT/HCPCS: 99283

== ENCOUNTER 2018-08-26 00:10 | Emergency (ER) | payer MEDICAID, OTHER ==
--- NOTE | 2018-08-26 01:13 | Emergency Department Report ---
ED Alcohol HPI - General Chief Complaint: Alcohol Stated Complaint: MH EVAL Time Seen by Provider: 08/26/18 00:23 Source: patient, EMS Mode of arrival: Stretcher Limitations: Altered Mental Status - History of Present Illness Initial Comments: 58-year-old male with a past history of arthritis, and alcohol abuse presents to the hospital acutely intoxicated. Patient is brought in by law enforcement because he complained of generalized body aches. Therefore, he was transported to the ER instead of to longterm. The patient does not have any complaints cu rrently. He is acutely intoxicated. He states that he drinks alcohol daily "every chance he gets". - Related Data Previous Rx's Medication Instructions Recorded Last Taken Type Amoxicillin/K Clav Tab [Augmentin 1 tab PO Q12HR #28 tab 09/21/16 Unknown Rx 875 mg] Apixaban [Eliquis] 5 mg PO BID #60 tablet 09/21/16 Unknown Rx Ferrous Gluconate [Fergon 325 MG 325 mg PO BID #60 tablet 09/21/16 Unknown Rx tab] Hydrocortisone 2.5% [Hytone 2.5% 1 applicatio TP TID 10 Days tube 09/21/16 Unknown Rx CREAM] oxyCODONE /ACETAMINOPHEN [Percocet 1 tab PO Q8H PRN #15 tablet 09/21/16 Unknown Rx 5/325 mg] HYDROcodone/APAP 5-325 [[place] 1 - 2 each PO Q6HR PRN #20 tablet 03/17/17 Unknown Rx 5/325] cephALEXin [Keflex] 500 mg PO Q6HR #40 capsule 03/17/17 Unknown Rx HYDROcodone/APAP 5-325 [[place] 1 each PO Q6HR PRN #12 tablet 03/03/18 Unknown Rx 5/325] Acetaminophen [Tylenol Extra 1,000 mg PO QID #60 tablet 03/26/18 Unknown Rx Strength] Allergies Allergy/AdvReac Type Severity Reaction Status Date / Time No Known Allergies Allergy Verified 07/20/16 06:07 ED Review of Systems ROS: Stated complaint: MH EVAL Other details as noted in HPI Comment: Unobtainable due to pts medical conditions (Limited due to patient's acute intoxication) ED Past Medical Hx - Past Medical History Previous Medical History?: Yes Hx Hypertension: No Hx Liver Disease: Yes (partial portal vein thrombosis) Hx Renal Disease: No Hx Sickle Cell Disease: No Hx Arthritis: Yes Hx Psychiatric Treatment: Yes (alcohol abuse) Additional medical history: Irregular heartbeat - Social History Smoking Status: Unknown if ever smoked Substance Use Type: Alcohol - Medications Home Medications: Home Medications Medication Instructions Recorded Confirmed Last Taken Type Amoxicillin/K Clav Tab [Augmentin 1 tab PO Q12HR #28 tab 09/21/16 Unknown Rx 875 mg] Apixaban [Eliquis] 5 mg PO BID #60 tablet 09/21/16 Unknown Rx Ferrous Gluconate [Fergon 325 MG 325 mg PO BID #60 tablet 09/21/16 Unknown Rx tab] Hydrocortisone 2.5% [Hytone 2.5% 1 applicatio TP TID 10 Days tube 09/21/16 Unknown Rx CREAM] oxyCODONE /ACETAMINOPHEN [Percocet 1 tab PO Q8H PRN #15 tablet 09/21/16 Unknown Rx 5/325 mg] HYDROcodone/APAP 5-325 [[place] 1 - 2 each PO Q6HR PRN #20 tablet 03/17/17 Unknown Rx 5/325] cephALEXin [Keflex] 500 mg PO Q6HR #40 capsule 03/17/17 Unknown Rx HYDROcodone/APAP 5-325 [[place] 1 each PO Q6HR PRN #12 tablet 03/03/18 Unknown Rx 5/325] Acetaminophen [Tylenol Extra 1,000 mg PO QID #60 tablet 03/26/18 Unknown Rx Strength] ED Physical Exam - General Limitations: Altered Mental Status - Other Other exam information: General: No limitations, patient is alert in no acute distress Head exam: Atraumatic, normocephalic Eyes exam: Normal appearance ENT: Moist mucous membrane Neck exam: Normal inspection, full range of motion, no meningismus nontender Respiratory exam: Clear to auscultation bilateral, no wheezes, rales, crackles Cardiovascular: Normal rate and rhythm, normal heart sounds Abdomen: Soft, nondistended, and nontender, with normal bowel sounds, no rebound, or guarding Extremity: Full range of motion normal inspection no deformity Back: Normal Inspection, full range of motion, no tenderness Neurologic: Alert, oriented x3, cranial nerves intact, no motor or sensory deficit Psychiatric: Belligerent and cursing at times but otherwise cooperative and not combative Skin: Warm, dry, intact ED Course Vital Signs 08/26/18 08/26/18 00:21 00:45 Temperature 98.0 F Pulse Rate 82 Respiratory 20 20 Rate Blood Pressure 134/81 O2 Sat by Pulse 98 Oximetry - Reevaluation(s) Reevaluation #1: 08/26/18 01:12 2012 until patient grace up and is safe for discharge ED Medical Decision Making - Lab Data Result diagrams: 08/26/18 01:31 08/26/18 01:31 Lab Results 08/26/18 08/26/18 08/26/18 Range/Units 00:45 00:45 01:31 WBC (4.5-11.0) K/mm3 RBC (3.65-5.03) M/mm3 Hgb (11.8-15.2) gm/dl Hct (35.5-45.6) % MCV (84-94) fl MCH (28-32) pg MCHC (32-34) % RDW (13.2-15.2) % Plt Count (140-440) K/mm3 Lymph % (Auto) (13.4-35.0) % [place] % (Auto) (0.0-7.3) % Eos % (Auto) (0.0-4.3) % Baso % (Auto) (0.0-1.8) % Lymph # (1.2-5.4) K/mm3 [place] # (0.0-0.8) K/mm3 Eos # (0.0-0.4) K/mm3 Baso # (0.0-0.1) K/mm3 Seg Neutrophils % (40.0-70.0) % Seg Neutrophils # (1.8-7.7) K/mm3 Sodium (137-145) mmol/L Potassium (3.6-5.0) mmol/L Chloride (98-107) mmol/L Carbon Dioxide (22-30) mmol/L Anion Gap mmol/L BUN (9-20) mg/dL Creatinine (0.8-1.5) mg/dL Estimated GFR ml/min BUN/Creatinine Ratio % Glucose (75-100) mg/dL Calcium (8.4-10.2) mg/dL Urine Color Colorless (Yellow) Urine Turbidity Clear (Clear) Urine pH 6.0 (5.0-7.0) Ur Specific [place] 1.001 L (1.003-1.030) Urine Protein <15 mg/dl (Negative) mg/dL Urine Glucose (UA) Neg (Negative) mg/dL Urine Ketones Neg (Negative) mg/dL Urine Blood Neg (Negative) Urine Nitrite Neg (Negative) Urine Bilirubin Neg (Negative) Urine Urobilinogen < 2.0 (<2.0) mg/dL Ur Leukocyte Esterase Neg (Negative) Urine WBC (Auto) < 1.0 (0.0-6.0) /HPF Urine RBC (Auto) < 1.0 (0.0-6.0) /HPF Salicylates < 0.3 L (2.8-20.0) mg/dL Urine Opiates Screen Presumptive negative Urine Methadone Screen Presumptive negative Acetaminophen (10.0-30.0) ug/mL Ur Barbiturates Screen Presumptive negative Ur Phencyclidine Scrn Presumptive negative Ur Amphetamines Screen Presumptive negative U Benzodiazepines Scrn Presumptive negative Urine Cocaine Screen Presumptive negative U Marijuana (THC) Screen Presumptive positive Drugs of Abuse Note Disclamer Plasma/Serum Alcohol (0-0.07) % 08/26/18 08/26/18 08/26/18 Range/Units 01:31 01:31 01:31 WBC (4.5-11.0) K/mm3 RBC (3.65-5.03) M/mm3 Hgb (11.8-15.2) gm/dl Hct (35.5-45.6) % MCV (84-94) fl MCH (28-32) pg MCHC (32-34) % RDW (13.2-15.2) % Plt Count (140-440) K/mm3 Lymph % (Auto) (13.4-35.0) % [place] % (Auto) (0.0-7.3) % Eos % (Auto) (0.0-4.3) % Baso % (Auto) (0.0-1.8) % Lymph # (1.2-5.4) K/mm3 [place] # (0.0-0.8) K/mm3 Eos # (0.0-0.4) K/mm3 Baso # (0.0-0.1) K/mm3 Seg Neutrophils % (40.0-70.0) % Seg Neutrophils # (1.8-7.7) K/mm3 Sodium 145 (137-145) mmol/L Potassium 3.8 (3.6-5.0) mmol/L Chloride 106.2 (98-107) mmol/L Carbon Dioxide 27 (22-30) mmol/L Anion Gap 16 mmol/L BUN 6 L (9-20) mg/dL Creatinine 0.6 L (0.8-1.5) mg/dL Estimated GFR > 60 ml/min BUN/Creatinine Ratio 10 % Glucose 78 (75-100) mg/dL Calcium 9.1 (8.4-10.2) mg/dL Urine Color (Yellow) Urine Turbidity (Clear) Urine pH (5.0-7.0) Ur Specific [place] (1.003-1.030) Urine Protein (Negative) mg/dL Urine Glucose (UA) (Negative) mg/dL Urine Ketones (Negative) mg/dL Urine Blood (Negative) Urine Nitrite (Negative) Urine Bilirubin (Negative) Urine Urobilinogen (<2.0) mg/dL Ur Leukocyte Esterase (Negative) Urine WBC (Auto) (0.0-6.0) /HPF Urine RBC (Auto) (0.0-6.0) /HPF Salicylates (2.8-20.0) mg/dL Urine Opiates Screen Urine Methadone Screen Acetaminophen < 5.0 L (10.0-30.0) ug/mL Ur Barbiturates Screen Ur Phencyclidine Scrn Ur Amphetamines Screen U Benzodiazepines Scrn Urine Cocaine Screen U Marijuana (THC) Screen Drugs of Abuse Note Plasma/Serum Alcohol 0.35 H (0-0.07) % 08/26/18 Range/Units 01:31 WBC 4.4 L (4.5-11.0) K/mm3 RBC 4.66 (3.65-5.03) M/mm3 Hgb 13.1 (11.8-15.2) gm/dl Hct 40.1 (35.5-45.6) % MCV 86 (84-94) fl MCH 28 (28-32) pg MCHC 33 (32-34) % RDW 16.2 H (13.2-15.2) % Plt Count 271 (140-440) K/mm3 Lymph % (Auto) 34.2 (13.4-35.0) % [place] % (Auto) 9.5 H (0.0-7.3) % Eos % (Auto) 2.5 (0.0-4.3) % Baso % (Auto) 0.7 (0.0-1.8) % Lymph # 1.5 (1.2-5.4) K/mm3 [place] # 0.4 (0.0-0.8) K/mm3 Eos # 0.1 (0.0-0.4) K/mm3 Baso # 0.0 (0.0-0.1) K/mm3 Seg Neutrophils % 53.1 (40.0-70.0) % Seg Neutrophils # 2.3 (1.8-7.7) K/mm3 Sodium (137-145) mmol/L Potassium (3.6-5.0) mmol/L Chloride (98-107) mmol/L Carbon Dioxide (22-30) mmol/L Anion Gap mmol/L BUN (9-20) mg/dL Creatinine (0.8-1.5) mg/dL Estimated GFR ml/min BUN/Creatinine Ratio % Glucose (75-100) mg/dL Calcium (8.4-10.2) mg/dL Urine Color (Yellow) Urine Turbidity (Clear) Urine pH (5.0-7.0) Ur Specific [place] (1.003-1.030) Urine Protein (Negative) mg/dL Urine Glucose (UA) (Negative) mg/dL Urine Ketones (Negative) mg/dL Urine Blood (Negative) Urine Nitrite (Negative) Urine Bilirubin (Negative) Urine Urobilinogen (<2.0) mg/dL Ur Leukocyte Esterase (Negative) Urine WBC (Auto) (0.0-6.0) /HPF Urine RBC (Auto) (0.0-6.0) /HPF Salicylates (2.8-20.0) mg/dL Urine Opiates Screen Urine Methadone Screen Acetaminophen (10.0-30.0) ug/mL Ur Barbiturates Screen Ur Phencyclidine Scrn Ur Amphetamines Screen U Benzodiazepines Scrn Urine Cocaine Screen U Marijuana (THC) Screen Drugs of Abuse Note Plasma/Serum Alcohol (0-0.07) % - Medical Decision Making Patient presents with acute alcohol intoxication and alcoholic. He will be held until he is less belligerent and more sober. He will need to be monitored for withdrawal symptoms. He may be discharged once he can ambulate safely and has normal behavior. - Differential Diagnosis alcohol abuse, drug intoxication, encephalopathy Critical Care Time: No Critical care attestation.: If time is entered above; I have spent that time in minutes in the direct care of this critically ill patient, excluding procedure time. ED Disposition Clinical Impression: Alcohol intoxication Disposition: DC-01 TO HOME OR SELFCARE Is pt being admited?: No Condition: Stable Instructions: Abuse of Alcohol (ED) Additional Instructions: Follow up with doctor or clinic provided. Return if symptoms worsen as indicated by your discharge instructions. Follow-up with Sascha if you desire help with alcohol addiction Referrals: [facility] [Provider Group] - 3-5 Days Mario Alberto Mcwilliams [Other] - 3-5 Days Time of Disposition: 06:00 (s/o to Dr villafuerte)
[2018-08-26 01:45] LABS: Basophils % (Auto) 0.7 % (0.0-1.8); Eosinophils # (Auto) 0.1 K/mm3 (0.0-0.4); Eosinophils % (Auto) 2.5 % (0.0-4.3); Hematocrit 40.1 % (35.5-45.6); Hemoglobin 13.1 gm/dl (11.8-15.2); Lymphocytes # (Auto) 1.5 K/mm3 (1.2-5.4); Lymphocytes % (Auto) 34.2 % (13.4-35.0); Mean Corpuscular HGB Conc 33 % (32-34); Mean Corpuscular Volume 86 fl (84-94); Monocytes # (Auto) 0.4 K/mm3 (0.0-0.8); Monocytes % (Auto) 9.5 % (0.0-7.3); Platelet Count 271 K/mm3 (140-440); Red Blood Count 4.66 M/mm3 (3.65-5.03); Red Cell Distribution Width 16.2 % (13.2-15.2)
[2018-08-26 01:59] LABS: BUN/Creatinine Ratio 10; Blood Urea Nitrogen 6 mg/dL (9-20); Calcium 9.1 mg/dL (8.4-10.2); Hemolysis Index 3
[2018-08-26 04:39] LABS: Bilirubin,Urine NEG (Negative); Blood,Urine NEG (Negative); Color,Urine Colorless (Yellow); Protein,Urine <15 mg/dL mg/dL (Negative); RBC,Urine < 1.0 /HPF (0.0-6.0); Urobilinogen,Urine < 2.0 mg/dL (<2.0)
[2018-08-26 04:43] LABS: WBC,Urine < 1.0 /HPF (0.0-6.0)
[2018-08-26 04:47] LABS: Amphetamine Screen,Urine PRESUMPTIVE NEGATIVE; Benzodiazepines Screen,Urine PRESUMPTIVE NEGATIVE; Cocaine Screen,Urine PRESUMPTIVE NEGATIVE; Methadone Screen,Urine PRESUMPTIVE NEGATIVE; Opiate Screen,Urine PRESUMPTIVE NEGATIVE
[2018-08-26 05:06] LABS: Cannabinoid Screen,Urine PRESUMPTIVE POSITIVE
[2018-08-26 07:05] VITALS: BP 140/92
== END 2018-08-26 07:20 | disposition home or self-care (01) ==
LOC: EEVIPCON 00:10 → ED 00:10
DX: F10.129 Alcohol abuse with intoxication, unspecified (principal); M19.90 Unspecified osteoarthritis, unspecified site; Z79.899 Other long term (current) drug therapy
CPT/HCPCS: 36415; 80048; 80307; 81001; 85025; 99284; G0480; 80320

== ENCOUNTER 2018-08-26 07:51 | Emergency (ER) | payer MEDICAID, OTHER ==
[2018-08-26] MEDS ORDERED: TORADOL IM ONE (10:39)
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
[2018-08-26 12:13] VITALS: BP 118/80
== END 2018-08-26 12:12 | disposition home or self-care (01) ==
LOC: ED 07:51
DX: M54.9 Dorsalgia, unspecified (principal); M25.512 Pain in left shoulder; G89.29 Other chronic pain; F17.200 Nicotine dependence, unspecified, uncomplicated; M19.90 Unspecified osteoarthritis, unspecified site
CPT/HCPCS: 96372; 99282; J1885

== ENCOUNTER 2019-01-04 04:08 | Emergency (ER) | payer MEDICAID ==
[2019-01-04] MEDS ORDERED: ASPIRIN PO ONE (05:29)
--- NOTE | 2019-01-04 05:51 | XRay Report ---
PROCEDURE: XR CHEST 1V AP TECHNIQUE: Chest radiograph single view. HISTORY: Chest Pain COMPARISONS: CT 07/21/16 FINDINGS: No mediastinal shift. Cardiac silhouette is not enlarged. No pneumothorax, effusion, or focal pulmona ry opacity identified. No acute skeletal findings. IMPRESSION: No acute pulmonary finding identified. This document is electronically signed by Du Kyle MD., January 04 2019 05:49:21 AM ET
[2019-01-04 05:53] LABS: Basophils % (Auto) 0.5 % (0.0-1.8); Eosinophils # (Auto) 0.4 K/mm3 (0.0-0.4); Eosinophils % (Auto) 8.4 % (0.0-4.3); Hemoglobin 10.9 gm/dl (11.8-15.2); Lymphocytes # (Auto) 1.2 K/mm3 (1.2-5.4); Lymphocytes % (Auto) 28.5 % (13.4-35.0); Mean Corpuscular HGB Conc 33 % (32-34); Mean Corpuscular Volume 83 fl (84-94); Monocytes # (Auto) 0.5 K/mm3 (0.0-0.8); Monocytes % (Auto) 11.7 % (0.0-7.3); Platelet Count 211 K/mm3 (140-440); Red Blood Count 3.96 M/mm3 (3.65-5.03); Red Cell Distribution Width 17.4 % (13.2-15.2)
[2019-01-04 06:08] LABS: BUN/Creatinine Ratio 16; Blood Urea Nitrogen 13 mg/dL (9-20); Calcium 9.1 mg/dL (8.4-10.2); Hemolysis Index 2
[2019-01-04] MEDS ORDERED: ATIVAN IM PRN (06:31)
[2019-01-04] MEDS ORDERED: HALDOL IM PRN (06:31)
--- NOTE | 2019-01-04 06:33 | Emergency Department Report ---
ED General Adult HPI - General Chief complaint: Chest Pain Stated complaint: CHEST PAIN Time Seen by Provider: 01/04/19 06:21 Source: patient, EMS (ems notes not available at time of chart dictation), RN notes reviewed, old records reviewed Mode of arrival: Stretcher Limitations: Other (the patient is intoxicated. The patient is a poor historian.) - History of Present Illness Initial comments: This is a 58-year-old gentleman. I have evaluated this patient in the past. His past medical history includes portal vein thrombosis, anemia, hemorrhoids, esophageal varices, alcohol abuse. The patient today is reportedly brought to the hospital by emergency medical services from EMS, from an abandoned house, punching his left chest, complaining of pressure intermittent stabbing chest pain which started 6 years ago. The patient endorsed homicidality. In the emergency room, the patient is intoxicated and disorganized. He is noted to be eating food without difficulty. He complains of left-sided chest discomfort, present for 1 decade, intermitt ent, and he cannot recall exacerbating or relieving factors. The patient denied posterior leg pain, posterior leg swelling, recent travel, recent surgeries. He will not comment homicidality or suicidality to this provider. He indicates that he feels like he needs a heart transplant. He is not accompanied by friends or family at this point time for collateral information. He has difficulty describing radiation, qualitative nature of his symptoms, exacerbating or relieving factors. -: year(s) Location: chest Radiation: other Severity scale (0 -10): 6 Quality: other Consistency: other Improves with: other Worsens with: other Associated Symptoms: other - Related Data Previous Rx's Medication Instructions Recorded Last Taken Type Famotidine [Pepcid] 20 mg PO BID #30 tablet 12/01/18 Unknown Rx Ondansetron [Zofran Odt] 4 mg PO Q8HR PRN #20 tab.rapdis 12/01/18 Unknown Rx Allergies Allergy/AdvReac Type Severity Reaction Status Date / Time No Known Allergies Allergy Verified 08/26/18 07:57 ED Review of Systems ROS: Stated complaint: CHEST PAIN Other details as noted in HPI Comment: patient disorganized, intoxicated, psychotic Constitutional: denies: fever Eyes: denies: eye discharge ENT: denies: epistaxis Respiratory: denies: wheezing Cardiovascular: chest pain Gastrointestinal: denies: vomiting Musculoskeletal: arthralgia Psychiatric: anxiety, homicidal thoughts ED Past Medical Hx - Past Medical History Previous Medical History?: Yes Hx Hypertension: Yes Hx Liver Disease: Yes (partial portal vein thrombosis) Hx Renal Disease: No Hx Sickle Cell Disease: No Hx Arthritis: Yes Hx Psychiatric Treatment: Yes (alcohol abuse, paranoia, depression) Additional medical history: Irregular heartbeat, "bad pancreas" - Surgical History Past Surgical History?: No - Social History Smoking Status: Current Every Day Smoker Substance Use Type: Alcohol, Marijuana - Medications Home Medications: Home Medications Medication Instructions Recorded Confirmed Last Taken Type Famotidine [Pepcid] 20 mg PO BID #30 tablet 12/01/18 Unknown Rx Ondansetron [Zofran Odt] 4 mg PO Q8HR PRN #20 tab.rapdis 12/01/18 Unknown Rx ED Physical Exam - General Limitations: Physical Limitation, Other (patient intoxicated, difficult to redirect, appears anxious and agitated) General appearance: alert, anxious - Head Head exam: Present: atraumatic, normocephalic - Eye Eye exam: Present: normal appearance, EOMI. Absent: nystagmus - ENT ENT exam: Present: normal exam, normal orophraynx, mucous membranes moist, normal external ear exam - Neck Neck exam: Present: normal inspection, full ROM. Absent: tenderness, meningismus - Respiratory Respiratory exam: Present: normal lung sounds bilaterally, chest wall tenderness. Absent: respiratory distress - Cardiovascular Cardiovascular Exam: Present: regular rate, normal rhythm, normal heart sounds. Absent: bradycardia, systolic murmur, diastolic murmur, rubs, gallop - GI/Abdominal GI/Abdominal exam: Present: soft. Absent: distended, tenderness, guarding, rebound, rigid, pulsatile mass - Rectal Rectal exam: Present: deferred - Extremities Exam Extremities exam: Present: normal inspection, full ROM, other (2+ pulses noted in the bilateral upper, lower extremities. Compartments soft. No long bony tenderness. The pelvis is stable.). Absent: pedal edema, joint swelling, calf tenderness - Back Exam Back exam: Present: normal inspection, full ROM. Absent: tenderness, CVA tenderness (R), CVA tenderness (L), paraspinal tenderness, vertebral tenderness - Neurological Exam Neurological exam: Present: alert, other (Extraocular movements intact. Tongue midline. No facial droop. Facial sensation intact to light touch in the V1, V2, V3 distribution bilaterally. 5 and 5 strength in 4 extremities.. Sensation is intact to light touch in 4 extremities.) - Psychiatric Psychiatric exam: Present: agitated, anxious - Skin Skin exam: Present: warm, dry, intact, normal color. Absent: rash ED Course Vital Signs 01/04/19 01/04/19 01/04/19 05:02 05:16 05:30 Temperature 98 F Pulse Rate 71 79 70 Respiratory 12 24 17 Rate Blood Pressure 131/76 126/75 115/66 Blood Pressure 131/76 [Right] O2 Sat by Pulse 99 100 99 Oximetry 01/04/19 01/04/19 01/04/19 05:44 06:00 07:00 Temperature Pulse Rate 78 80 Respiratory 18 16 15 Rate Blood Pressure 128/83 116/81 Blood Pressure [Right] O2 Sat by Pulse 98 95 Oximetry 01/04/19 01/04/19 08:00 09:00 Temperature Pulse Rate 66 65 Respiratory 16 14 Rate Blood Pressure 103/53 Blood Pressure 103/53 105/57 [Right] O2 Sat by Pulse 96 96 Oximetry - Reevaluation(s) Reevaluation #1: 01/04/19 10:14 Differential diagnosis, including but not limited to: Alcohol intoxication, intracranial injury, cervical spine injury, substance induced psychosis, mood disorder, costochondritis Assessment and plan: 58-year-old gentleman who is chemically and clinically intoxicated, with reproducible chest wall pain and tenderness, patient has endorsed desire to harm other people, and at this point in time, does not demonstrate the ability to independently care for himself. He is therefore placed on a 1013 for the aforementioned psychiatric reasons. Troponin negative 2, EKG unchanged 2 and unchanged from prior, the patient is not tachycardic, he is not hypoxic, he is not tachypneic, it is very unlikely that he is experiencing a pulmonary embolus. Screening laboratory studies so far reviewed and appreciated, they are unremarkable, doubt intracranial injury, however, given alcohol intoxication, and no reliable collateral information, we will obtain CT imaging of the head and cervical spine. Of note, patient given haloperidol for agitation and pressured speech, and his symptoms appeared to be much improved. Furthermore, he was eating food and drinking soda without difficulty upon my entering the room. Reevaluation #2: 01/04/19 11:48 CT scan the brain, cervical spine negative for acute disease. Patient resting comfortably, and stretcher, and is in no acute distress. Troponin negative 2. Alcohol withdrawal protocol is ordered. Patient at this point in time does not appear to have an immediate medical contraindications to psychiatric admission, evaluation, consultation placement. Psychiatric team has been informed. ED Medical Decision Making - Lab Data Result diagrams: 01/04/19 05:40 01/04/19 05:40 Vital Signs 01/04/19 01/04/19 01/04/19 05:02 05:16 05:30 Temperature 98 F Pulse Rate 71 79 70 Respiratory 12 24 17 Rate Blood Pressure 131/76 126/75 115/66 Blood Pressure 131/76 [Right] O2 Sat by Pulse 99 100 99 Oximetry 01/04/19 01/04/19 01/04/19 05:44 06:00 07:00 Temperature Pulse Rate 78 80 Respiratory 18 16 15 Rate Blood Pressure 128/83 116/81 Blood Pressure [Right] O2 Sat by Pulse 98 95 Oximetry 01/04/19 08:00 Temperature Pulse Rate 66 Respiratory 16 Rate Blood Pressure 103/53 Blood Pressure 103/53 [Right] O2 Sat by Pulse 96 Oximetry Lab Results 01/04/19 01/04/19 01/04/19 Range/Units 05:40 05:40 07:00 WBC 4.4 L (4.5-11.0) K/mm3 RBC 3.96 (3.65-5.03) M/mm3 Hgb 10.9 L (11.8-15.2) gm/dl Hct 33.0 L (35.5-45.6) % MCV 83 L (84-94) fl MCH 28 (28-32) pg MCHC 33 (32-34) % RDW 17.4 H (13.2-15.2) % Plt Count 211 (140-440) K/mm3 Lymph % (Auto) 28.5 (13.4-35.0) % [place] % (Auto) 11.7 H (0.0-7.3) % Eos % (Auto) 8.4 H (0.0-4.3) % Baso % (Auto) 0.5 (0.0-1.8) % Lymph # 1.2 (1.2-5.4) K/mm3 [place] # 0.5 (0.0-0.8) K/mm3 Eos # 0.4 (0.0-0.4) K/mm3 Baso # 0.0 (0.0-0.1) K/mm3 Seg Neutrophils % 50.9 (40.0-70.0) % Seg Neutrophils # 2.2 (1.8-7.7) K/mm3 Sodium 148 H (137-145) mmol/L Potassium 4.1 (3.6-5.0) mmol/L Chloride 110.9 H (98-107) mmol/L Carbon Dioxide 25 (22-30) mmol/L Anion Gap 16 mmol/L BUN 13 (9-20) mg/dL Creatinine 0.8 (0.8-1.5) mg/dL Estimated GFR > 60 ml/min BUN/Creatinine Ratio 16 % Glucose 88 (75-100) mg/dL Calcium 9.1 (8.4-10.2) mg/dL Magnesium 1.80 (1.7-2.3) mg/dL Total Creatine Kinase 443 H (55-170) units/L Troponin T < 0.010 (0.00-0.029) ng/mL Urine Color (Yellow) Urine Turbidity (Clear) Urine pH (5.0-7.0) Ur Specific Lund (1.003-1.030) Urine Protein (Negative) mg/dL Urine Glucose (UA) (Negative) mg/dL Urine Ketones (Negative) mg/dL Urine Blood (Negative) Urine Nitrite (Negative) Urine Bilirubin (Negative) Urine Urobilinogen (<2.0) mg/dL Ur Leukocyte Esterase (Negative) Urine WBC (Auto) (0.0-6.0) /HPF Urine RBC (Auto) (0.0-6.0) /HPF U Epithel Cells (Auto) (0-13.0) /HPF Urine Mucus /HPF Salicylates (2.8-20.0) mg/dL Urine Opiates Screen Urine Methadone Screen Acetaminophen (10.0-30.0) ug/mL Ur Barbiturates Screen Ur Phencyclidine Scrn Ur Amphetamines Screen U Benzodiazepines Scrn Urine Cocaine Screen U Marijuana (THC) Screen Drugs of Abuse Note Plasma/Serum Alcohol (0-0.07) % 01/04/19 01/04/19 01/04/19 Range/Units 07:00 07:00 07:00 WBC (4.5-11.0) K/mm3 RBC (3.65-5.03) M/mm3 Hgb (11.8-15.2) gm/dl Hct (35.5-45.6) % MCV (84-94) fl MCH (28-32) pg MCHC (32-34) % RDW (13.2-15.2) % Plt Count (140-440) K/mm3 Lymph % (Auto) (13.4-35.0) % Windsor % (Auto) (0.0-7.3) % Eos % (Auto) (0.0-4.3) % Baso % (Auto) (0.0-1.8) % Lymph # (1.2-5.4) K/mm3 [place] # (0.0-0.8) K/mm3 Eos # (0.0-0.4) K/mm3 Baso # (0.0-0.1) K/mm3 Seg Neutrophils % (40.0-70.0) % Seg Neutrophils # (1.8-7.7) K/mm3 Sodium (137-145) mmol/L Potassium (3.6-5.0) mmol/L Chloride (98-107) mmol/L Carbon Dioxide (22-30) mmol/L Anion Gap mmol/L BUN (9-20) mg/dL Creatinine (0.8-1.5) mg/dL Estimated GFR ml/min BUN/Creatinine Ratio % Glucose (75-100) mg/dL Calcium (8.4-10.2) mg/dL Magnesium (1.7-2.3) mg/dL Total Creatine Kinase (55-170) units/L Troponin T (0.00-0.029) ng/mL Urine Color (Yellow) Urine Turbidity (Clear) Urine pH (5.0-7.0) Ur Specific Lund (1.003-1.030) Urine Protein (Negative) mg/dL Urine Glucose (UA) (Negative) mg/dL Urine Ketones (Negative) mg/dL Urine Blood (Negative) Urine Nitrite (Negative) Urine Bilirubin (Negative) Urine Urobilinogen (<2.0) mg/dL Ur Leukocyte Esterase (Negative) Urine WBC (Auto) (0.0-6.0) /HPF Urine RBC (Auto) (0.0-6.0) /HPF U Epithel Cells (Auto) (0-13.0) /HPF Urine Mucus /HPF Salicylates 0.6 L (2.8-20.0) mg/dL Urine Opiates Screen Urine Methadone Screen Acetaminophen < 5.0 L (10.0-30.0) ug/mL Ur Barbiturates Screen Ur Phencyclidine Scrn Ur Amphetamines Screen U Benzodiazepines Scrn Urine Cocaine Screen U Marijuana (THC) Screen Drugs of Abuse Note Plasma/Serum Alcohol 0.18 H (0-0.07) % 01/04/19 01/04/19 01/04/19 Range/Units 07:03 07:04 08:32 WBC (4.5-11.0) K/mm3 RBC (3.65-5.03) M/mm3 Hgb (11.8-15.2) gm/dl Hct (35.5-45.6) % MCV (84-94) fl MCH (28-32) pg MCHC (32-34) % RDW (13.2-15.2) % Plt Count (140-440) K/mm3 Lymph % (Auto) (13.4-35.0) % [place] % (Auto) (0.0-7.3) % Eos % (Auto) (0.0-4.3) % Baso % (Auto) (0.0-1.8) % Lymph # (1.2-5.4) K/mm3 [place] # (0.0-0.8) K/mm3 Eos # (0.0-0.4) K/mm3 Baso # (0.0-0.1) K/mm3 Seg Neutrophils % (40.0-70.0) % Seg Neutrophils # (1.8-7.7) K/mm3 Sodium (137-145) mmol/L Potassium (3.6-5.0) mmol/L Chloride (98-107) mmol/L Carbon Dioxide (22-30) mmol/L Anion Gap mmol/L BUN (9-20) mg/dL Creatinine (0.8-1.5) mg/dL Estimated GFR ml/min BUN/Creatinine Ratio % Glucose (75-100) mg/dL Calcium (8.4-10.2) mg/dL Magnesium (1.7-2.3) mg/dL Total Creatine Kinase (55-170) units/L Troponin T < 0.010 (0.00-0.029) ng/mL Urine Color Yellow (Yellow) Urine Turbidity Clear (Clear) Urine pH 5.0 (5.0-7.0) Ur Specific Lund 1.026 (1.003-1.030) Urine Protein <15 mg/dl (Negative) mg/dL Urine Glucose (UA) Neg (Negative) mg/dL Urine Ketones Neg (Negative) mg/dL Urine Blood Neg (Negative) Urine Nitrite Neg (Negative) Urine Bilirubin Neg (Negative) Urine Urobilinogen < 2.0 (<2.0) mg/dL Ur Leukocyte Esterase Neg (Negative) Urine WBC (Auto) 1.0 (0.0-6.0) /HPF Urine RBC (Auto) 1.0 (0.0-6.0) /HPF U Epithel Cells (Auto) < 1.0 (0-13.0) /HPF Urine Mucus Few /HPF Salicylates (2.8-20.0) mg/dL Urine Opiates Screen Presumptive negative Urine Methadone Screen Presumptive negative Acetaminophen (10.0-30.0) ug/mL Ur Barbiturates Screen Presumptive negative Ur Phencyclidine Scrn Presumptive negative Ur Amphetamines Screen Presumptive negative U Benzodiazepines Scrn Presumptive negative Urine Cocaine Screen Presumptive negative U Marijuana (THC) Screen Presumptive positive Drugs of Abuse Note Disclamer Plasma/Serum Alcohol (0-0.07) % - EKG Data -: EKG Interpreted by Fl EKG shows normal: sinus rhythm Rate: normal - EKG Data 01/04/19 10:16 EKG #1 shows a sinus rhythm, 68 bpm, normal axis, left ventricular hypertrophy, QTC within normal limits. This is an abnormal EKG. His EKG is unchanged from her prior EKG from 12/01/2018. EKG #2 is unchanged from EKG #1. Neither EKG today consistent with ST elevation myocardial infarction. - Radiology Data Radiology results: pending, report reviewed, image reviewed Critical care attestation.: If time is entered above; I have spent that time in minutes in the direct care of this critically ill patient, excluding procedure time. ED Disposition Clinical Impression: Alcohol intoxication, Chronic chest wall pain, Medical clearance for psychiatric admission Disposition: DC/TX-65 PSY HOSP/PSY UNIT Is pt being admited?: No Does the pt Need Aspirin: No Condition: Good Instructions: Chest Pain (ED) Referrals: MARBELLA TILLMAN MD [Primary Care Provider] - 3-5 Days
[2019-01-04 08:15] LABS: Bilirubin,Urine NEG (Negative); Blood,Urine NEG (Negative); Color,Urine Yellow (Yellow); Mucus,Urine FEW /HPF; Protein,Urine <15 mg/dL mg/dL (Negative); Urobilinogen,Urine < 2.0 mg/dL (<2.0)
[2019-01-04 08:18] LABS: Amphetamine Screen,Urine PRESUMPTIVE NEGATIVE; Benzodiazepines Screen,Urine PRESUMPTIVE NEGATIVE; Cocaine Screen,Urine PRESUMPTIVE NEGATIVE; Methadone Screen,Urine PRESUMPTIVE NEGATIVE; Opiate Screen,Urine PRESUMPTIVE NEGATIVE
[2019-01-04 08:32] LABS: Cannabinoid Screen,Urine PRESUMPTIVE POSITIVE
--- NOTE | 2019-01-04 11:15 | Cat Scan Report ---
CT HEAD WITHOUT CONTRAST: HISTORY: Altered mental status, psychosis. TECHNIQUE: Sequential 2.5mm CT images. COMPARISON: none. FINDINGS: Cerebral Parenchyma: Within normal limits. Cerebellum: Within normal limits. Brainstem: Within normal limits. Ventricles: Normal. Sella: Normal. Extra-axial spaces: Normal. Basal Cisterns: Normal. Intracranial Hemorrhage: None. Midline Shift: None. Calvarium: Normal. Sinuses: Normal. Mastoid Air Cells: Normal. Visualized Orbits: Normal. IMPRESSION: Cranial CT scan within normal limits.
--- NOTE | 2019-01-04 11:17 | Cat Scan Report ---
CT SCAN OF THE CERVICAL SPINE: HISTORY: Psychotic, EtOH, altered mental status. TECHNIQUE: Contiguous 1.25 mm axial images of the cervical spine were obtained. Sagittal and coronal reformatted images. FINDINGS: Moderate to severe multilevel degenerative disc disease is identified. There is advanced disc space narrowing and marginal spurring at all levels. No evidence for fracture, subluxation or bone lesion. There are minimal degenerative changes in the facet joints. Multilevel neural foraminal narrowing suspected. No central canal narrowing is identified. IMPRESSION: Advanced cervical spondylosis. No acute process is noted.
[2019-01-04] MEDS ORDERED: ATIVAN PO PRN ×2 (11:47)
[2019-01-04] MEDS ORDERED: LIBRIUM PO PRN ×2 (11:47)
[2019-01-04] MEDS ORDERED: ATIVAN IV PRN (11:47)
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
[2019-01-05 15:29] VITALS: BP 133/91
[2019-01-05] MEDS ORDERED: IBUPROFEN PO ONE (16:47)
== END 2019-01-05 18:02 | disposition home or self-care (01) ==
LOC: ED 04:08
DX: F10.120 Alcohol abuse with intoxication, uncomplicated (principal); R07.89 Other chest pain; I10 Essential (primary) hypertension; M19.90 Unspecified osteoarthritis, unspecified site; F17.200 Nicotine dependence, unspecified, uncomplicated; F12.90 Cannabis use, unspecified, uncomplicated
CPT/HCPCS: 36415; 70450; 71045; 72125; 80048; 80307; 81001; 82550; 83735; 84484; 85025; 93005; 93010; 96372; 99285; G0480; J1630; 80320

== ENCOUNTER 2020-03-01 11:23 | Emergency (ER) | payer MEDICAID ==
[2020-03-01 11:28] VITALS: BP 108/67
--- NOTE | 2020-03-01 12:02 | Emergency Department Report ---
Chief Complaint: Extremity Injury, Lower Stated Complaint: KNEE PAIN Time Seen by Provider: 03/01/20 11:41 - HPI History of Present Illness: 39-year-old -Spanish male patient presents with complaints of chronic low back and bilateral knee pain for more than 6 months, worsening over the past 2 days. Patient was seen here in July of this year with the same complaint. He denies any new injuries, fever/chills/sweats, swollen/red joints, numbness/tingling/weakness in his limbs, loss of bladder/bowel control, or weakness in his legs. - Exam Vital Signs: Vital Signs 03/01/20 11:27 Temperature 97.3 F L Pulse Rate 76 Respiratory 17 Rate Blood Pressure 108/67 O2 Sat by Pulse 97 Oximetry MSE screening note: Focused history and physical exam performed. Due to findings the following was ordered: ED Medical Decision Making - Medical Decision Making Patient here with complaints of chronic low back and bilateral knee pain. He denies any red flag symptoms. Patient states he is needing pain medication until he is able to see his primary care provider at [facility]. Patient is requesting ibuprofen. Informed patient to take [id number] ibuprofen as needed for pain. His vitals are normal he is nontoxic-appearing. Recommend follow-up as scheduled with his primary care provider for his chronic back and knee pain. Strict return precautions were discussed in detail with patient who verbalizes understanding. ED Disposition for MSE Disposition: -07 MED SCREENING EXAM-LEFT Condition: Stable Referrals: BREE SINGH MD [Primary Care Provider] - 3-5 Days ED Physical Exam - General Limitations: No Limitations General appearance: alert, in no apparent distress - Head Head exam: Present: atraumatic, normocephalic - Neck Neck exam: Present: full ROM - Respiratory Respiratory exam: Absent: respiratory distress - Cardiovascular Cardiovascular Exam: Present: regular rate - Extremities Exam Extremities exam: Present: full ROM. Absent: joint swelling - Back Exam Back exam: Present: full ROM - Neurological Exam Neurological exam: Present: alert, oriented X3. Absent: normal gait (Antalgic gait noted; patient walking holding his lower back), motor sensory deficit - Psychiatric Psychiatric exam: Present: normal affect, normal mood - Skin Skin exam: Present: warm, dry, intact, normal color. Absent: rash, cyanosis ED Review of Systems ROS: Stated complaint: KNEE PAIN Other details as noted in HPI Constitutional: denies: chills, fever Respiratory: denies: cough, shortness of breath Cardiovascular: denies: chest pain Musculoskeletal: back pain, arthralgia. denies: joint swelling Skin: denies: rash, lesions
== END 2020-03-01 12:03 | disposition left against medical advice (07) ==
LOC: ED 11:23
DX: M54.5 Low back pain (principal); M25.562 Pain in left knee; M25.561 Pain in right knee; Z53.21 Procedure and treatment not carried out due to patient leaving prior to being seen by health care provider

== ENCOUNTER 2020-03-01 11:54 | Emergency (ER) | payer MEDICAID | END 2020-03-01 12:00 | disposition left against medical advice (07) | LOC: ED 11:54 | DX: Z53.21 Procedure and treatment not carried out due to patient leaving prior to being seen by health care provider (principal) ==